=== PATIENT | female | born 1980 | race Caucasian/White ===

== ENCOUNTER 2016-05-20 20:13 | Emergency (ER) | payer OTHER, SELFPAY ==
[~2016-05-20] VITALS: Ht 162.6 cm; Wt 99.8 kg
[2016-05-21 00:28] VITALS: BP 128/70
--- NOTE | 2016-05-21 06:11 | REP ---
Clinical: Trauma. Technique: AP, lateral, bilateral oblique views of the right foot. Findings: No acute fracture or dislocation. Skeletal structures, joint spaces, and surrounding soft tissues appear relatively normal compared to 07/08/2005. No subcutaneous emphysema or radiodense foreign body. Lateral view demonstrates small calcaneal heal spur. Impression: No acute fracture or dislocation. Small calcaneal heal spur. Signed by David Santos MD 05/21/2016 06:03 A
== END 2016-05-21 00:29 | disposition home or self-care (01) ==
LOC: M ED 21:14
DX: S90.31XA Contusion of right foot, initial encounter (principal); W22.8XXA Striking against or struck by other objects, initial encounter; Y92.89 Other specified places as the place of occurrence of the external cause; Y93.89 Activity, other specified; Y99.0 Civilian activity done for income or pay; F17.210 Nicotine dependence, cigarettes, uncomplicated

== ENCOUNTER → 2020-02-29 | Outpatient (CLI) | payer OTHER | LOC: M LABSMTC 13:01 | PROVIDERS: ATTEND Pediatrics | DX: Z20.828 Contact with and (suspected) exposure to other viral communicable diseases (principal) ==

== ENCOUNTER 2020-03-22 10:00 | Inpatient (IN) | payer OTHER ==
[~2020-03-22] VITALS: Ht 165.1 cm; Wt 94.2 kg
[2020-03-22] MEDS ORDERED: NS 1,000 ML IV ONE (12:00)
[2020-03-22 12:48] VITALS: O2SAT 100
--- NOTE | 2020-03-22 12:50 | REP ---
INDICATION: Abdominal Pain COMPARISON: None. TECHNIQUE: PA and lateral. FINDINGS: The mediastinum and cardiac silhouette are normal. The lung wayne are clear and without acute consolidation, effusion, or pneumothorax. The skeletal structures are intact and normal. IMPRESSION: No acute cardiopulmonary process. <Electronically signed by David Santos > 03/22/20 [id number]
[2020-03-22 13:09] LABS: BASO # 0.1 10^3/uL (0.0-0.2); BASO % 0.3 % (0.0-1.0); EOS # 0.1 10^3/uL (0.0-0.5); EOS % 0.8 % (0.0-3.0); HEMATOCRIT 41.1 % (36.0-47.0); HEMOGLOBIN 13.6 g/dl (12.0-15.5); LYMPH # 2.3 10^3/uL (1.5-5.0); LYMPH % 15.9 % (24.0-44.0); MEAN CORPUSCULAR HEMOGLOBIN 29.6 pg (27.0-33.0); MEAN CORPUSCULAR HGB CONC 33.1 g/dl (32.0-36.5); MEAN CORPUSCULAR VOLUME 89.3 fl (80.0-96.0); MONO # 1.1 10^3/uL (0.0-0.8); MONO % 7.8 % (0.0-5.0); NEUTROPHILS # 10.7 10^3/uL (1.5-8.5); NEUTROPHILS % 74.3 % (36.0-66.0); PLATELET COUNT, AUTOMATED 155 10^3/uL (150-450); WHITE BLOOD COUNT 14.4 10^3/uL (4.0-10.0)
[2020-03-22 13:23] LABS: RSV AMPLIFICATION NEGATIVE (NEGATIVE)
[2020-03-22 13:26] LABS: INR 1.14; PROTHROMBIN TIME 14.9 SECONDS (12.5-14.3)
[2020-03-22 13:28] LABS: PARTIAL THROMBOPLASTIN TIME 25.7 SECONDS (24.2-38.5)
[2020-03-22 13:38] LABS: ERYTHROCYTE SEDIMENTATION RATE 43 mm/hr (0-20)
[2020-03-22 13:45] LABS: ALBUMIN 3.5 GM/DL (3.2-5.2); ALT/SGPT 72 U/L (12-78); BILIRUBIN,DIRECT 0.2 MG/DL (0.0-0.2); BILIRUBIN,TOTAL 0.6 MG/DL (0.2-1.0); BLOOD UREA NITROGEN 25 MG/DL (7-18); CALCIUM LEVEL 8.7 MG/DL (8.5-10.1); CARBON DIOXIDE LEVEL 21 MEQ/L (21-32); CHLORIDE LEVEL 103 MEQ/L (98-107); CK-MB VALUE MASS 1.2 NG/ML (<3.6); CPK CREATINE PHOSPHOKINASE 79 U/L (26-192); CREATININE FOR GFR 2.21 MG/DL (0.55-1.30); FREE T4 1.18 NG/DL (0.76-1.46); GLOMERULAR FILTRATION RATE 26.2 (>58); GLUCOSE, FASTING 346 MG/DL (70-100); LIPASE 79 U/L (73-393); MB/CK RELATIVE INDEX 1.52 (< OR =4); NT-PRO BNP 154 PG/ML (<125); POTASSIUM SERUM 3.8 MEQ/L (3.5-5.1); SODIUM LEVEL 134 MEQ/L (136-145); TOTAL PROTEIN 7.7 GM/DL (6.4-8.2); TROPONIN I < 0.02 NG/ML (< 0.10)
--- NOTE | 2020-03-22 14:34 | REP ---
INDICATION: b/l LE swelling COMPARISON: None. TECHNIQUE: Null scale and color Doppler evaluation bilateral lower extremities using linear high frequency transducer. FINDINGS: Ultrasound examination of the right and left lower extremity deep venous structures from the common femoral vein to the popliteal vein demonstrates slow flow, but normal compressibility and wave patterns in response to respiration and augmentation. There is no evidence for deep venous thrombosis. IMPRESSION: No evidence for deep venous thrombosis. <Electronically signed by David Santos > 03/22/20 [id number]
[2020-03-22 14:43] LABS: RHEUMATOID FACTOR QUANT < 10.0 IU/ML (<15.0)
[2020-03-22 15:11] LABS: D-DIMER QUANT > 4000 ng/ml (<500)
[2020-03-22] MEDS ORDERED: IBUP80TA PO (15:13)
[2020-03-22] MEDS ORDERED: CYCL-707 PO (15:13)
[2020-03-22] MEDS ORDERED: PT COMMENT (15:22)
[2020-03-22 16:07] LABS: HEMOGLOBIN A1c 9.8 %
[2020-03-22] MEDS ORDERED: GLUCAGON INJ 1MG VIAL SC PRN (16:15)
[2020-03-22] MEDS ORDERED: DEXTROSE 50% 50 ML SYRINGE IV PRN (16:15)
[2020-03-22] MEDS ORDERED: GLUCOSE 4GM CHEW TABLET PO PRN (16:15)
--- NOTE | 2020-03-22 16:17 | REP ---
INDICATION: lower back pain, bl LE edema. COMPARISON: 07/17/2007 TECHNIQUE: Axial noncontrast images of the lumbosacral spine from mid T12 through mid sacrum with coronal and sagittal reformations. This CT examination was performed using the following dose reduction techniques: Automated exposure control, adjustment of mA and/or kv according to the patient's size, and use of iterative reconstruction technique. FINDINGS: Alignment and lordosis maintained. Old fracture at L1 noted. There is no evidence for acute fracture/compression injury or subluxation. Early advanced focal degenerative change at L5-S1 similar to prior examination includes osteophytosis, endplate sclerosis, disc space narrowing and small posterior disc bulge. Small disc bulge at L4-5 is also suggested. The neural foramen appear patent and there is no evidence for in pinch mint to the exiting nerve roots. Spinal canal is patent. The paravertebral soft tissues are normal. IMPRESSION: 1. Old healed compression fracture at L1. 2. Early advanced relatively stable degenerative spondylosis at L5-S1. 3. No acute fracture/compression injury or subluxation. <Electronically signed by David Santos > 03/22/20 [id number]
--- NOTE | 2020-03-22 16:18 | HPEPDOC ---
General Date of Admission 03/22/20 Date of Service: Mar 22, 2020 Chief Complaint The patient is a 39-year-old female admitted with a reason for visit of Leg Swelling, Chest Pain. Source: Patient Exam Limitations: No limitations Timing/Duration: Day(s) Severity: Mild, Moderate History of Present Illness Patient is 39 years old female with past history of hypothyroidism, chronic back pain, goiter presented hospital with bilateral leg swelling. Patient stated that she went to urgent care 3 days ago because of exacerbation of chronic back pain, she received injection of Toradol and received ibuprofen. On the next day patient started feeling leg swelling bilaterally which progressively increased for past 2 days. In ER patient was found to have white blood count of 14.4, sedimentation rate of 43, creatinine 2.2, GFR 26, glucose level 346, d-dimer elevated to 4,000. Doppler ultrasound negative for DVT. Home Medications Scheduled PRN Cyclobenzaprine HCl (Cyclobenzaprine HCl) 10 Mg Tablet, 10 MG PO Q8H PRN for SPASMS, (Reported) Ibuprofen (Ibuprofen) 800 Mg Tablet, 800 MG PO Q8H PRN for PAIN, (Reported) Miscellaneous Medications [Pt Comment] , (Reported) pt states takes a norethindrone/ethinyl estradiol birthcontrol of indeterminate strength. Last taken on 03/21/20. Allergies Coded Allergies: sulfamethoxazole (Verified Allergy, Unknown, RASH, 03/22/20) Past Medical History Medical History goiter, Hypothyroidism Family History Mother had diabetes Social History * Smoker: current smoker Alcohol: Denies Drugs: denies A-FIB/CHADSVASC A-FIB History Current/History of A-Fib/PAF?: No Current PO Anticoag Therapy: No Review of Systems Constitutional: Denies: Chills, Fever Eyes: Denies: Pain ENT: Denies: Head Aches, Ear Pain Skin: Denies: Rash, Lesions Pulmonary: Denies: Dyspnea, Cough Cardiovascular: Reports: Edema; Denies: Chest Pain, Palpitations Gastrointestinal: Denies: Nausea, Vomiting Genitourinary: Denies: Dysuria Endocrine: Denies: Polydipsia, Polyphagia Musculoskeletal: Denies: Neck Pain Neurological: Denies: Weakness Psych: Reports: Mood Normal Physical Examination General Exam: Positive: Alert, Cooperative Eye Exam: Positive: PERRLA ENT Exam: Positive: Atraumatic Neck Exam: Positive: Supple; Negative: JVD Chest Exam: Positive: Clear to auscultation Heart Exam: Positive: Tachycardic Telemetry: Positive: Sinus Abdomen Exam: Positive: Normal bowel sounds Extremity Exam: Positive: Edema (bilaterally); Negative: Clubbing Skin Exam: Negative: Lesion Neuro Exam: Positive: Normal Gait, Strength at 5/5 X4 ext Psych Exam: Positive: Mental status NL Vital Signs Vital Signs Date Time Temp Pulse Resp B/P (MAP) Pulse Ox O2 Delivery O2 Flow Rate FiO2 03/22/20 13:45 98 100 Room Air 03/22/20 12:52 99.0 20 03/22/20 10:12 150/81 (104) Laboratory Data Labs 24H Laboratory Tests 2 03/22/20 11:58: Prothrombin Time 14.9H, Prothromb Time International Ratio 1.14, Activated Partial Thromboplast Time 25.7, D-Dimer, Quantitative > 4000H, Anion Gap 10, Glomerular Filtration Rate 26.2L, Calcium Level 8.7, Total Bilirubin 0.6, Direct Bilirubin 0.2, Aspartate Amino Transf (AST/SGOT) 13, Alanine Aminotransferase (ALT/SGPT) 72, Alkaline Phosphatase 106, Total Creatine Kinase 79, Creatine Kinase MB 1.2, Creatine Kinase MB Relative Index 1.52, Troponin I < 0.02, C- Reactive Protein, Quantitative 14.50H, QJ-Abp-L-Type Natriuretic Peptide 154H, Total Protein 7.7, Albumin 3.5, Albumin/Globulin Ratio 0.8L, Lipase 79, Thyroid Stimulating Hormone (TSH) 2.340, Free Thyroxine 1.18, Rheumatoid Factor < 10.0 03/22/20 12:02: Coronavirus (COVID-19)(PCR) NEGATIVE, Influenza Type A (RT-PCR) NEGATIVE, Influenza Type B (RT-PCR) NEGATIVE, Respiratory Syncytial Virus (PCR) NEGATIVE 03/22/20 12:11: Immature Granulocyte % (Auto) 0.9, Neutrophils (%) (Auto) 74.3H, Lymphocytes (%) (Auto) 15.9L, Monocytes (%) (Auto) 7.8H, Eosinophils (%) (Auto) 0.8, Basophils (%) (Auto) 0.3, Neutrophils # (Auto) 10.7H, Lymphocytes # (Auto) 2.3, Monocytes # (Auto) 1.1H, Eosinophils # (Auto) 0.1, Basophils # (Auto) 0.1, Nucleated Red Blood Cells % (auto) 0.0, Erythrocyte Sedimentation Rate 43H, Urine Color YELLOW, Urine Appearance CLOUDYH, Urine pH 5.0, Urine Specific [place] 1.030, Urine Protein 2+H, Urine Glucose (UA) 3+H, Urine Ketones NEGATIVE, Urine Blood NEGATIVE, Urine Nitrite NEGATIVE, Urine Bilirubin NEGATIVE, Urine Urobilinogen 0.2, Urine Leukocyte Esterase NEGATIVE, Urine WBC (Auto) 16H, Urine RBC (Auto) 2, Urine Hyaline Casts (Auto) 0, Urine Bacteria (Auto) 1+H, Urine Squamous Epithelial Cells 5, Urine Amorphous Sediment SMALLH, Urine Granular Casts (Auto) 8, Urine Mucus (Auto) SMALL, Urine Sperm (Auto) CBC/BMP Laboratory Tests 03/22/20 11:58 03/22/20 12:11 Microbiology Microbiology 03/22/20 Blood Culture, Received Pending 03/22/20 Urine Culture, Received Pending 03/22/20 Blood Culture, Received Pending Assessment/Plan Patient is 39 years old female with past history of hypothyroidism, chronic back pain, goiter presented hospital with bilateral leg swelling. Patient stated that she went to urgent care 3 days ago because of exacerbation of chronic back pain, she received injection of Toradol and received ibuprofen. On the next day patient started feeling leg swelling bilaterally which progressively increased for past 2 days. In ER patient was found to have white blood count of 14.4, sedimentation rate of 43, creatinine 2.2, GFR 26, glucose level 346, d-dimer elevated to 4,000. Doppler ultrasound negative for DVT. Problems (1) ASYA (acute kidney injury) Status: Acute Problem Text: Most likely intrinsic Secondary to NSAIDs and undiagnosed diabetes Appreciate/agree with production designer consult We'll check urine protein for 24 hours Autoimmune studies ordered (2) Elevated d-dimer Status: Acute Problem Text: Patient does not have any shortness of breath however she is tachycardic and d dimer elevated to 4,000 VQ scan not available I will start anticoagulation empirically (3) Lower extremity edema Status: Acute Problem Text: Echo ordered to rule out cardiac causes BNP within normal limit (4) Diabetes mellitus Status: Chronic Problem Text: Diabetes diet We'll check HbA1c Insulin sliding scale (5) Hypothyroidism Status: Chronic Problem Text: TSH and T4 with a normal limit Follow-up with sprayer leather in the outpatient settings Plan / VTE VTE Prophylaxis Ordered?: Yes WOLF JARQUIN DO Mar 22, 2020 16:18
--- NOTE | 2020-03-22 16:49 | REP ---
INDICATION: acute kidney failure COMPARISON: None TECHNIQUE: Real time brantley scale ultrasound examination using curved array transducer. FINDINGS: Kidneys are normal in contour, size, echogenicity, and reniform shape without hydronephrosis, nephrolithiasis, cystic or renal mass lesion. No perinephric fluid collection. Right kidney measures 13.5 x 6.5 x 5.3 cm. Left kidney measures 12.3 x 6.1 x 6.9 cm. Bladder is collapsed. IMPRESSION: 1. Normal renal ultrasound. No hydronephrosis. <Electronically signed by David Santos > 03/22/20 1072
[2020-03-22 17:47] LABS: COMPLEMENT C3 163 MG/DL (90-180); CPK CREATINE PHOSPHOKINASE 62 U/L (26-192)
--- NOTE | 2020-03-22 18:07 | ECGEPIP ---
[facility] - ED Test Date: 2020-03-22 Pat Name: AYDEN EVANS Department: Room: - Gender: Female Intake Coordinator: : 1980 Requested By: JUSTYN FRENCH PA-C. Order Number: [id number] Reading MD: Rocco King Measurements Intervals [place] Rate: 97 P: 39 SD: 141 QRS: -1 QRSD: 97 T: 7 QT: 340 QTc: 432 Interpretive Statements SINUS RHYTHM DELAYED R WAVE PROGRESSION NONSPECIFIC ST T WAVE CHANGES NO PRIOR ECG FOR COMPARISON Electronically Signed on 03-22-2020 18:07:14 EST by Rocco King
[2020-03-22] MEDS: HumaLOG INSULIN (NovoLOG) PER UNIT SC SCH ×2 (19:22→21:00)
[2020-03-22] MEDS: APIXABAN 5 MG TAB (ELIQUIS) PO SCH (21:00)
[2020-03-22] MEDS ORDERED: APIXABAN 5 MG TAB (ELIQUIS) PO SCH (21:00)
[2020-03-22] MEDS ORDERED: FUROSEMIDE 100MG/10ML VIAL (J1940) IV ONE (23:15)
--- NOTE | 2020-03-23 07:08 | CR ---
CONSULTATION DATE: 03/22/2020 REQUESTING PHYSICIAN: Dr. Aryan Simental CONSULTING PHYSICIAN: Dr. Mccarty REASON FOR CONSULTATION: Management of acute renal failure and lower extremity edema. CHIEF COMPLAINT: The patient presented to the hospital with progressive shortness of breath and lower extremity edema. HISTORY OF PRESENT ILLNESS: Demetrio Serrano is a 39-year-old female with past medical history of possible thyroid disorder. She does not follow up with any primary care at this time. She was trying to establish care for a long time. However, she was given very distant dates. She is not aware that she had developed diabetes. She was complaining of severe low back pain. She was recently seen in the urgent care unit where she was given ibuprofen 800 mg three times a day about three days ago when she was taking for her back pain. She is also taking oral contraceptive pills for the last one year almost. Apart from that, she denies taking any other medications. She was getting a severe lower extremity edema and swelling of the legs and her legs were so tired that she was unable to walk and she was getting short of breath as well so she presented to the emergency room today. When patient came to the emergency room, she was found to have acute renal failure with a creatinine of 2.2. She also had proteinuria on the labs done in the emergency room. Nephrology service was called for help in the management of this patient with acute renal failure. No baseline renal function known. She was also found to have a glucose level of 346, newly diagnosed diabetes with an A1c of 9.8. Nephrology service help was sought for further management of this patient's edema and management of acute renal failure and for the proteinuria workup. The patient needed my immediate attention. I saw her in the emergency room tonight. She was afebrile, hemodynamically stable. She was actually hypertensive. She denies any fevers or chills at this time. PAST MEDICAL HISTORY: No known past medical history. She reports history of some thyroid issues in the past. PAST SURGICAL HISTORY: No known past surgical history. ALLERGIES: SHE IS ALLERGIC TO SULFA DRUGS. FAMILY HISTORY: No significant family history of any end-stage renal disease requiring hemodialysis. SOCIAL HISTORY: She denies any smoking, illicit drug abuse or alcohol abuse. REVIEW OF SYSTEMS: Constitutional: She denies any fevers or chills. Eyes: She denies any blurry vision, double vision. Cardiovascular: She denies any chest pain, palpitation. Respiratory: She reports moderate shortness of breath on exertion. GI: She denies any nausea or vomiting. Genitourinary: She denies any dysuria, hematuria or foaming of the urine. Musculoskeletal: She reports tightness of the legs and lower extremities. Skin: She denies any rashes or ulcers. Hematological/Oncological: She denies any easy bleeding or bruising. Endocrine: She denies any polyphagia, polyuria. She does report some thyroid abnormalities. Psych: She denies any depression or anxiety. WAREHOUSE DELIVERY MANAGER: He denies any strokes, weakness or seizures.. All other review of systems is negative. PHYSICAL EXAMINATION: GENERAL: The patient is awake, alert, oriented x3, lying in bed. VITAL SIGNS: Temperature is 99.3 degrees Fahrenheit, blood pressure 178/90, pulse is 112, respiratory rate of 16, saturating 99% on room air. INTAKE AND OUTPUT: Urine output is not recorded. HEAD AND NECK: Extraocular muscles are intact. Pupils are equally round and reactive to light. Mucous membranes are moist. Neck is supple. There is no JVD. CARDIOVASCULAR: S1, S2, regular rate, 2+ edema of the bilateral lower extremities all the way up to thighs. RESPIRATORY: Chest is clear to auscultation bilaterally, no active rales or rhonchi. ABDOMEN: Soft, positive bowel sounds, nontender, no organomegaly. MUSCULOSKELETAL: No clubbing or cyanosis. EXTREMITIES: Pulses are 2+ in the bilateral lower extremities and she does have edema of the bilateral lower extremities all the way up to the thighs. WAREHOUSE DELIVERY MANAGER: No focal deficits. 5/5 strength in all extremities. LABORATORY DATA: CBC showed a WBC of 14.4, hemoglobin 13.6, platelets of 155. INR is 1.1. D-dimer was more than 4000. Urine showed it was cloudy with 2+ protein, 3+ glucose, 16 WBCs, 1+ bacteria. BMP showed sodium 134, potassium 3.8, chloride 103, bicarb 21, BUN 25, creatinine 2.2. Glucose 346. A1c was 9.8, calcium 8.7, total bilirubin 0.6, AST 13, ALT 72. Alk phos is 106. C-reactive protein is 14.5. Albumin is 3.5, lipase 79. TSH is 2.3, Free T4 is 1.1. Immunology: Rheumatoid factor is less than 10. MARVIN, ANCA is pending. Complement 3 is 163. COVID-19 is negative. Hep B, hep C, hep A is negative. Microbiology: Urine and blood cultures are pending. IMAGING: Ultrasound was done today which showed normal renal ultrasound. No hydronephrosis was noted. CT of lumbar spine was done which showed an old healed compression fracture of L1. Relatively stable degenerative spondylosis at L5-S1. CURRENT INPATIENT MEDICATIONS: 1. The patient was given normal saline bolus when she arrived. 2. She has been started on Eliquis 5 mg p.o. twice a day. I have increased the dose to 10 mg p.o. twice a day. 3. I have given her a dose of Lasix 60 mg IV x1 dose. 4. She has been started on insulin Lispro sliding scale. ASSESSMENT: 39-year-old female with new onset diabetes, acute renal failure with proteinuria and lower extremity edema. PLAN: 1. Acute renal failure. Most likely the patient has baseline diabetic nephropathy and she was taking ibuprofen 800 mg three times a day for the last three days. Most likely it is NSAID-induced. I am hopeful that her renal function should start improving over the next 24 to 48 hours. She does not need IV fluids at this time. Her blood pressures are actually high. No need of IV fluid hydration overnight. Since she was already given bolus, I am going to give her a small dose of Lasix. 2. Lower extremity edema. The patient has signs of fluid overload at this time. I am not sure whether lower extremity edema is associated with her proteinuria or worsening renal function or any other etiology. At this point, I am going to give her a dose of Lasix 60 mg IV tonight and further diuretic regimen will be changed tomorrow morning. Proteinuria workup is as mentioned below. Doppler done in the emergency room is negative for DVT. 3. Elevated D-dimer and shortness of breath. The patient is not a candidate for CT with IV contrast because of acute renal failure. Doppler is negative. V/Q scan is not available over the weekend. She has been empirically started on Eliquis 10 mg p.o. twice a day. 4. Proteinuria. Most likely it is baseline diabetic nephropathy. She was taking high dose of NSAIDs as well. I have ordered 24 hour urine protein and creatinine and spot protein and creatinine as well. Primary team has already sent MARVIN and ANCA. I have ordered [id number]-[id number] DNA antibodies and anti-GBM antibody as well. She is not a candidate for SAMIRA or ARB at this time because of acute renal failure. 5. Newly diagnosed diabetes. The patient has been started on insulin sliding scale. She will be started on insulin Levemir tomorrow morning. She has been started on consistent carbohydrate diet. Thank you for involving me in the care of this patient. I shall be happy to follow the patient along with you tomorrow morning.
[2020-03-23 07:30] LABS: ALBUMIN 3.1 GM/DL (3.2-5.2); CALCIUM LEVEL 8.8 MG/DL (8.5-10.1); CREATININE FOR GFR 2.05 MG/DL (0.55-1.30); GLOMERULAR FILTRATION RATE 28.6 (>58); PHOSPHORUS LEVEL 3.3 MG/DL (2.5-4.9); POTASSIUM SERUM 3.8 MEQ/L (3.5-5.1)
[2020-03-23] MEDS: HumaLOG INSULIN (NovoLOG) PER UNIT SC SCH ×4 (08:08→21:36)
[2020-03-23] MEDS ORDERED: ONDANSETRON 4MG/2ML VIAL IV PRN (08:15)
[2020-03-23] MEDS ORDERED: LEVEMIR (INSULIN DETEMIR) 1 UNITS/0.01ML SC SCH (09:00)
[2020-03-23] MEDS: APIXABAN 5 MG TAB (ELIQUIS) PO SCH ×2 (09:51→21:15)
[2020-03-23 10:45] VITALS: BP 162/98
[2020-03-23 11:26] LABS: OSMOLALITY URINE 740 MOSM/KG (500-800)
[2020-03-23 11:53] LABS: POTASSIUM RANDOM URINE 32.8 MEQ/L; SODIUM,RANDOM URINE < 10 MEQ/L; TOTAL PROTEIN,RANDOM URINE 132.7 MG/DL (0.0-12.0)
[2020-03-23] MEDS: FUROSEMIDE 40MG/4ML VIAL (J1940) IV SCH ×2 (12:41→21:15)
[2020-03-23] MEDS ORDERED: POTASSIUM CHLORIDE 10 MEQ SR TABLET PO ONE (13:00)
[2020-03-23 14:00] VITALS: BP 159/82
--- NOTE | 2020-03-23 17:40 | IPNPDOC ---
Text Note Date of Service The patient was seen on 03/23/20. NOTE Subjective: Patient continues to complain of the leg swelling. No any acute e vents overnight Objective: GENERAL APPEARANCE: NAD HEENT: no scleral icterus, no JVD, EOMI CARDIOVASCULAR: S1S2 LUNGS: CTA ABDOMEN: soft & not tender w palpitation MUSCULOSKELETAL: +3 nonpitting edema from the ankle to the middle of her hip INTEGUMENT: no generalized pallor NEUROLOGICAL: cranial nerve function from 2-12 intact intact, follows commands, speech not dysarthric Assessment/Plan Patient is 39 years old female with past history of hypothyroidism, chronic back pain, goiter presented hospital with bilateral leg swelling. Patient stated that she went to urgent care 3 days ago because of exacerbation of chronic back pain, she received injection of Toradol and received ibuprofen. On the next day patient started feeling leg swelling bilaterally which progressively increased for past 2 days. In ER patient was found to have white blood count of 14.4, sedimentation rate of 43, creatinine 2.2, GFR 26, glucose level 346, d-dimer elevated to 4,000. Doppler ultrasound negative for DVT. Problems (1) ASYA (acute kidney injury) Most likely intrinsic Secondary to NSAIDs and undiagnosed diabetes We'll check urine protein for 24 hours Urine protein/creatinine ratio 0.8 Autoimmune studies pending (2) Elevated d-dimer Patient does not have any shortness of breath however she is tachycardic and d dimer elevated to 4,000 VQ scan not available Continue anticoagulation empirically (3) Lower extremity edema Echo ordered to rule out cardiac causes BNP within normal limit Lasix IV (4) Diabetes mellitus Diabetes diet HbA1c 10. Patient will need insulin in the outpatient settings Insulin sliding scale Detemir twice a day (5) Hypothyroidism TSH and T4 with a normal limit Follow-up with equipment operator wage hand in the outpatient settings Proteinuria Mostly secondary to diabetic nephropathy superimposed with NSAIDS Await 24 hours urine protein Await autoimmune study VS,Fishbone, I+O VS, Fishbone, I+O Laboratory Tests 03/23/20 06:46 Vital Signs Date Time Temp Pulse Resp B/P (MAP) Pulse Ox O2 Delivery O2 Flow Rate FiO2 03/23/20 14:00 98.4 109 18 159/82 (107) 99 Room Air WOLF JARQUIN DO Mar 23, 2020 17:40
[2020-03-23 20:00] VITALS: BP 150/88
[2020-03-23] MEDS: LEVEMIR (INSULIN DETEMIR) 1 UNITS/0.01ML SC SCH (21:36)
--- NOTE | 2020-03-23 23:06 | IPN ---
NEPHROLOGY PROGRESS NOTE DATE: 03/23/2020 SUBJECTIVE: Patient was seen and examined at the bedside today morning. She was just transferred from the Emergency Room to the medical floor. She reports persistent lower extremity edema and she told me that shortness of breath is slightly better today as compared with yesterday. She was given a dose of I.V. Lasix last night. She does report making more urine with that, but it has not been recorded because she was in the Emergency Room. Her renal function is slightly better today as compared with yesterday. Blood pressure was elevated in the morning. She denies any history of hypertension in the past. OBJECTIVE: VITAL SIGNS: Temperature 97.8 degrees Fahrenheit, blood pressure 162/98, pulse 104, respiratory rate 16, saturating 99% on room air. INTAKE AND OUTPUT: Urine output recorded as 800 mL so far. Weight in the bed scale is 92.7 kg. PHYSICAL EXAMINATION: GENERAL: Patient is awake, alert and oriented x3, lying in bed, in no apparent distress. HEAD/NECK: Extraocular movements intact. Pupils equally round and reactive to light. Mucous membranes are moist. Neck is supple. There is no significant JVD. CARDIOVASCULAR: S1, S2, regular rate. EXTREMITIES: 2+ edema of the bilateral lower extremities. RESPIRATORY: Mildly decreased breath sounds at the bases, otherwise no active rales or rhonchi. ABDOMEN: Soft, positive bowel sounds, nontender. No organomegaly. MUSCULOSKELETAL: 2+ edema of the bilateral lower extremities all the way up to her thighs. MONORAIL CAR OPERATOR: No focal deficits. Power is 5/5 in all extremities. LABORATORY REVIEW: CBC is from yesterday. BMP done today morning showed sodium 133, potassium 3.8, chloride 105, bicarb 20, BUN 24, creatinine 2; it was 2.2 yesterday. Glucose level 323. Calcium 8.8, phosphorus 3.3, albumin 3.1. Spot urine protein 132 and creatinine 137, which translates into less than 1 gram of proteinuria. Random sodium was less than 10. Immunology so far has showed a normal C3 level and serology showed negative influenza and RSV. Hepatitis B and C serologies pending. COVID-19 is negative. MICROBIOLOGY: Blood cultures and urine cultures are negative so far. CURRENT INPATIENT MEDICATIONS: Patient's medications were all reviewed by myself. She was given a dose of Lasix 60 mg I.V. last night. I have started her on Lasix 40 mg I.V. every 8 hours. She was also given a dose of potassium chloride 40 mEq times one dose. She has been started on insulin Levemir 7 units subcutaneously twice a day. ASSESSMENT AND PLAN: 1. Acute renal failure: Most likely patient has baseline diabetic nephropathy and now she took higher doses of NSAIDs at home for the last 3-4 days. Patient's renal function is slowly improving. Proteinuria workup has already been ordered. Autoimmune serologies pending. 2. Lower extremity edema: Patient has fluid overload. Not sure whether it is related to renal failure or her proteinuria, however, patient does need diuretics at this time. As mentioned above, she has been started on Lasix 40 mg I.V. every 8 hours. A dose of potassium was also given. 3. Elevated D-Dimers and shortness of breath: Patient is empirically on Eliquis. Doppler of the lower extremity is negative for DVT. CT with angio is not possible because of acute renal failure. VQ scan is not available over the weekend. 4. Proteinuria: Spot urine protein and creatinine ratio shows less than 1 gram of protein. She is not a candidate for SAMIRA and ARB at this time because of acute renal failure. Autoimmune serology is pending. 24-hour urine results are pending. 5. Newly diagnosed diabetes: Patient is on insulin sliding scale and Levemir. Not a candidate for Metformin at this time because of elevated creatinine.
[2020-03-24 04:14] VITALS: BP 146/101
[2020-03-24] MEDS: FUROSEMIDE 40MG/4ML VIAL (J1940) IV SCH ×3 (04:14→21:56)
[2020-03-24] MEDS ORDERED: MORPHINE 2 MG/ML 1ML VIAL (J2270) IV ONE (04:30)
[2020-03-24 06:27] LABS: BASO % 0.3 % (0.0-1.0); EOS # 0.1 10^3/uL (0.0-0.5); EOS % 0.8 % (0.0-3.0); HEMOGLOBIN 12.9 g/dl (12.0-15.5); LYMPH # 2.7 10^3/uL (1.5-5.0); LYMPH % 19.5 % (24.0-44.0); MEAN CORPUSCULAR HEMOGLOBIN 29.3 pg (27.0-33.0); MEAN CORPUSCULAR HGB CONC 33.1 g/dl (32.0-36.5); MEAN CORPUSCULAR VOLUME 88.6 fl (80.0-96.0); MONO # 1.5 10^3/uL (0.0-0.8); MONO % 10.6 % (0.0-5.0); NEUTROPHILS # 9.3 10^3/uL (1.5-8.5); NEUTROPHILS % 67.9 % (36.0-66.0); PLATELET COUNT, AUTOMATED 170 10^3/uL (150-450); WHITE BLOOD COUNT 13.7 10^3/uL (4.0-10.0)
[2020-03-24 06:52] LABS: ALBUMIN 2.9 GM/DL (3.2-5.2); BILIRUBIN,TOTAL 0.7 MG/DL (0.2-1.0); CALCIUM LEVEL 8.8 MG/DL (8.5-10.1); CREATININE FOR GFR 2.28 MG/DL (0.55-1.30); GLOMERULAR FILTRATION RATE 25.3 (>58); MAGNESIUM LEVEL 2.3 MG/DL (1.8-2.4); POTASSIUM SERUM 4.2 MEQ/L (3.5-5.1); TOTAL PROTEIN 7.1 GM/DL (6.4-8.2)
--- NOTE | 2020-03-24 08:22 | ECHO ---
DATE OF PROCEDURE: 03/23/2020 Age: 39 Gender: Female Height: 65 inches Weight: 205 pounds Body surface area: 2.0 m2 PATIENT LOCATION: Inpatient currently in holding in the emergency room. REFERRING PHYSICIAN: Aryan Simental DO. INDICATION: Pedal edema. MEASUREMENTS: 2D Measurements: RV 2.4 cm LV 4.2 cm Septum 0.9 cm Posterior wall 0.9 cm Aortic Root 2.9 cm LA 3.5 cm LVEF 75% Doppler Measurements: AV 1.3 m/s LVOT 1.1 m/s MV-E 61, A 88, E/A ratio 0.7 E prime medial 7.6, A prime medial 12, E prime lateral 12.5 PV 1.0 m/s Pulmonary artery acceleration time 129 msec PASP 24 mmHg IVC 1.8 cm COMMENTS: Sinus tachycardia without intraventricular conduction disturbance. Technically challenging study in light of the patients body habitus, but some diagnostically useful information was still obtained. Normal left ventricular size, wall thickness, and hyperkinetic wall motion. Normal left atrial size and Doppler assessment of mean left atrial pressure. Normal right heart chamber sizes and motion and estimated pulmonary arterial pressure. Normal IVC size and collapse against an elevated central venous pressure. Normal aortic dimensions. Normal appearing aortic valve and function. Normal appearing mitral valve with adequate excursion and no posterior systolic buckling. Trace insufficiency. Right heart structures were somewhat challenging to visualize. We could not detect any significant tricuspid insufficiency. We could not visualize any intracardiac mass or pericardial effusion. MTDD
[2020-03-24] MEDS ORDERED: INFLUENZA QUADRIVALENT PF VACCINE 0.5ML SYRINGE IM SCH (09:00)
[2020-03-24] MEDS: HumaLOG INSULIN (NovoLOG) PER UNIT SC SCH ×4 (09:01→21:00)
[2020-03-24] MEDS: LEVEMIR (INSULIN DETEMIR) 1 UNITS/0.01ML SC SCH ×2 (09:01→21:57)
[2020-03-24] MEDS: APIXABAN 5 MG TAB (ELIQUIS) PO SCH (09:01)
--- NOTE | 2020-03-24 09:55 | REP ---
INDICATION: Needs to be done before 11 a.m. for Nuclear [facility] COMPARISON: 03/22/2020 TECHNIQUE: PA and lateral. FINDINGS: The mediastinum and cardiac silhouette are normal. The lung wayne are clear and without acute consolidation, effusion, or pneumothorax. The skeletal structures are intact and normal. IMPRESSION: No acute cardiopulmonary process. <Electronically signed by David Santos > 03/24/20 0947
--- NOTE | 2020-03-24 12:02 | REP ---
INDICATION: CP, elevated dimer, pleuritic CP, elevated creatinine. COMPARISON: Chest radiograph 03/24/2020. TECHNIQUE/RADIOTRACER AND DOSE: Following the intravenous administration of 5.3 mCi technetium 99 M tagged MAA, anion lesion of 1.0 mCi technetium 99 M DTPA aerosol, multiple images of the lung wayne are obtained in various projections. FINDINGS: There is relatively homogeneous perfusion of both lungs. There is a small matching ventilation and perfusion defect in the lingula. No areas of acute mismatch is seen. IMPRESSION: Low probability of pulmonary embolism. <Electronically signed by Hunter Null > 03/24/20 1151
[2020-03-24 13:11] LABS: CREATININE 24 HOUR, URINE 1425.6 MG/24HR (600-1800); CREATININE, URINE 64.8 MG/DL; TOTAL PROTEIN 24 HOUR URINE 1146.2 MG/24HR (50-150); URINE TOTAL PROTEIN 52.1 MG/DL (0-12)
[2020-03-24 14:00] VITALS: BP 144/88
[2020-03-24 15:12] LABS: HEPATITIS B CORE ANTIBODY IGM NEGATIVE (NEGATIVE); HEPATITIS B SURFACE ANTIBODY NEGATIVE (POSITIVE); HEPATITIS B SURFACE ANTIGEN NEGATIVE (NEGATIVE); HEPATITIS C VIRUS ABY INDEX < 0.0 INDEX (<0.8)
--- NOTE | 2020-03-24 18:39 | IPNPDOC ---
Text Note Date of Service The patient was seen on 03/24/20. NOTE Subjective: No any acute events overnight Objective: GENERAL APPEARANCE: NAD HEENT: no scleral icterus, no JVD, EOMI CARDIOVASCULAR: S1S2 LUNGS: CTA ABDOMEN: soft & not tender w palpitation MUSCULOSKELETAL: +3 nonpitting edema from the ankle to the middle of her hip INTEGUMENT: no generalized pallor NEUROLOGICAL: cranial nerve function from 2-12 intact intact, follows commands, speech not dysarthric Assessment/Plan Patient is 39 years old female with past history of hypothyroidism, chronic back pain, goiter presented hospital with bilateral leg swelling. Patient stated that she went to urgent care 3 days ago because of exacerbation of chronic back pain, she received injection of Toradol and received ibuprofen. On the next day patient started feeling leg swelling bilaterally which progressively increased for past 2 days. In ER patient was found to have white blood count of 14.4, sedimentation rate of 43, creatinine 2.2, GFR 26, glucose level 346, d-dimer elevated to 4,000. Doppler ultrasound negative for DVT. Problems (1) ASYA (acute kidney injury) Most likely intrinsic Secondary to NSAIDs and undiagnosed diabetes Await urine protein for 24 hours Urine protein/creatinine ratio 0.8 Autoimmune studies pending (2) Elevated d-dimer VQ scan showed low probability of PE DC oral anticoagulation (3) Lower extremity edema Echo showed Normal left ventricular size, wall thickness, and hyperkinetic wall motion. Normal left atrial size and Doppler assessment of mean left atrial pressure. Normal right heart chamber sizes and motion and estimated pulmonary arterial pressure. Normal IVC size and collapse against an elevated central venous pressure. BNP within normal limit Nephrology team started Lasix IV (4) Diabetes mellitus Diabetes diet HbA1c 10. Patient will need insulin in the outpatient settings Insulin sliding scale Detemir twice a day, glucose level not optimally controlled. I increased detemir twice a day to 16 units (5) Hypothyroidism TSH and T4 with a normal limit Follow-up with hydroelectric systems technician in the outpatient settings Proteinuria Mostly secondary to diabetic nephropathy superimposed with NSAIDS Await 24 hours urine protein Await autoimmune study VS,Fishbone, I+O VS, Fishbone, I+O Laboratory Tests 03/24/20 05:32 Vital Signs Date Time Temp Pulse Resp B/P (MAP) Pulse Ox O2 Delivery O2 Flow Rate FiO2 03/24/20 06:00 97.9 104 18 98 03/24/20 04:14 146/101 (116) 03/23/20 20:00 Room Air I&O- Last 24 Hours up to 6 AM 03/24/20 06:00 Intake Total 1815 ml Output Total 1950 ml Balance -135 ml WOLF JARQUIN DO Mar 24, 2020 18:38
--- NOTE | 2020-03-24 21:38 | IPN ---
NEPHROLOGY PROGRESS NOTE DATE: 03/24/2020 SUBJECTIVE: Patient was seen and examined at the bedside today morning. She had just come back after getting her VQ scan done. When I saw her, she was started on I.V. diuretics yesterday. She reports that urine output is improving, however, she still reports persistent lower extremity edema. Renal function is slightly worse today as compared with yesterday with a bump in creatinine from 2 to 2.2 today. She denies any other active complaints at this time. OBJECTIVE: VITAL SIGNS: Temperature 98.3 degrees Fahrenheit, blood pressure 144/88, pulse 107, respiratory rate 22, saturating 97% on room air. INTAKE AND OUTPUT: Urine output recorded as 1.9 liter yesterday and 925 mL so far today since overnight. Weight in the bed scale is 96 kg. PHYSICAL EXAMINATION: GENERAL: Patient is awake, alert and oriented x3, lying in bed, in no apparent distress. HEAD/NECK: Extraocular muscles intact. Pupils equally round and reactive to light. Mucous membranes are moist. Neck is supple. There is no JVD. CARDIOVASCULAR: S1, S2, regular rate. 2+ edema of the bilateral lower extremities all the way up to the thighs. RESPIRATORY: Chest is clear to auscultation bilaterally. Bilateral equal air entry. No rales or rhonchi. ABDOMEN: Soft, positive bowel sounds, nontender. No organomegaly. MUSCULOSKELETAL: Edema of the lower extremities as mentioned above, otherwise no clubbing or cyanosis. SILVER STEWARD: No focal deficits. Power is 5/5 in all extremities. LABORATORY REVIEW: CBC showed WBC 13.7, hemoglobin 12.9, platelets 170,000. A 24-hour urine protein is 1.1 gram, volume 2.2 liters. BMP showed sodium 132, potassium 4.2, chloride 103, bicarb 22, BUN 28, creatinine 2.2; it was 2.05 yesterday. Calcium 8.8, albumin 2.9. MICROBIOLOGY: Blood cultures and urine cultures are negative so far. IMAGING STUDIES: A VQ scan of the lung was done today morning, which showed a low probability of PE. Chest x-ray was done today, which showed no cardiopulmonary process. Echocardiogram done on 03/22/2020 showed LV ejection fraction of 75%, normal right heart chambers and motion, normal IVC size and collapse against an elevated central venous pressure. There was no tricuspid insufficiency or pericardial effusion. CURRENT INPATIENT MEDICATIONS: Patient's medications were all reviewed by myself. Her Eliquis has been stopped now. She continues to be on Lasix 40 mg I.V. every 8 hours. Insulin Levemir dose has been increased to 16 units subcutaneously twice a day. She is also on insulin sliding scale. ASSESSMENT AND PLAN: 1. Acute renal failure: Unknown etiology at this time. She has subnephrotic range proteinuria. She was using high dose of NSAIDs at home. Continue to monitor. If there is no improvement in her renal function, she might need to get a renal biopsy done. 2. Lower extremity edema: Patient continues to be on Lasix. Continue current dose of the diuretics at this time. 3. Elevated D-Dimers: Dopplers and VQ scan has been negative. Eliquis has been stopped. 4. Proteinuria: A 24-hour urine protein is 1.1 gram. Autoimmune serologies are pending. I would have a low threshold to do a biopsy in this patient because she is young and presented with acute renal failure with unknown etiology. 5. Newly diagnosed diabetes: Patient is currently on Levemir Insulin sliding scale. No SAMIRA or ARB at this time because of acute renal failure.
[2020-03-24 22:00] VITALS: BP 148/94
[2020-03-25] VITALS (8 sets, daily range): BP systolic 121–160; BP diastolic 89–105
[2020-03-25] MEDS: FUROSEMIDE 40MG/4ML VIAL (J1940) IV SCH ×3 (04:11→20:18)
[2020-03-25 06:20] LABS: BASO % 0.3 % (0.0-1.0); EOS # 0.1 10^3/uL (0.0-0.5); EOS % 1.1 % (0.0-3.0); HEMATOCRIT 38.4 % (36.0-47.0); HEMOGLOBIN 12.8 g/dl (12.0-15.5); LYMPH # 2.2 10^3/uL (1.5-5.0); LYMPH % 16.7 % (24.0-44.0); MEAN CORPUSCULAR HEMOGLOBIN 29.4 pg (27.0-33.0); MEAN CORPUSCULAR HGB CONC 33.3 g/dl (32.0-36.5); MEAN CORPUSCULAR VOLUME 88.1 fl (80.0-96.0); MONO # 1.4 10^3/uL (0.0-0.8); MONO % 10.4 % (0.0-5.0); NEUTROPHILS # 9.2 10^3/uL (1.5-8.5); NEUTROPHILS % 70.4 % (36.0-66.0); PLATELET COUNT, AUTOMATED 161 10^3/uL (150-450); RED BLOOD COUNT 4.36 10^6/uL (4.00-5.40)
[2020-03-25 06:54] LABS: CREATININE FOR GFR 2.08 MG/DL (0.55-1.30); GLOMERULAR FILTRATION RATE 28.1 (>58); POTASSIUM SERUM 3.6 MEQ/L (3.5-5.1)
[2020-03-25 06:55] LABS: ALBUMIN 2.8 GM/DL (3.2-5.2); BILIRUBIN,TOTAL 0.6 MG/DL (0.2-1.0); CALCIUM LEVEL 8.7 MG/DL (8.5-10.1); MAGNESIUM LEVEL 2.1 MG/DL (1.8-2.4)
[2020-03-25] MEDS: HumaLOG INSULIN (NovoLOG) PER UNIT SC SCH ×4 (08:02→19:54)
[2020-03-25] MEDS: LEVEMIR (INSULIN DETEMIR) 1 UNITS/0.01ML SC SCH ×2 (08:03→20:19)
[2020-03-25] MEDS ORDERED: METOPROLOL TART 25 MG TABLET PO SCH (11:00)
[2020-03-25 11:20] LABS: INR 1.3; PROTHROMBIN TIME 16.5 SECONDS (12.5-14.3)
[2020-03-25 11:22] LABS: D-DIMER QUANT 3020.62 ng/ml (<500)
[2020-03-25 11:33] LABS: CHOLESTEROL LEVEL 170 MG/DL (<200); CK-MB VALUE MASS < 1.0 NG/ML (<3.6); CPK CREATINE PHOSPHOKINASE 35 U/L (26-192); HDL CHOLESTEROL 50 MG/DL (>40); LDL CHOLESTEROL 68 MG/DL (<100); MB/CK RELATIVE INDEX 2.86 (< OR =4); NON-HDL-C 120 MG/DL; TRIGLYCERIDES LEVEL 261 MG/DL (<150); TROPONIN I < 0.02 NG/ML (< 0.10)
[2020-03-25] MEDS: LORazepam 0.5 MG TAB PO PRN (13:02)
[2020-03-25 14:10] LABS: ANTINUCLEAR ANTIBODIES DIRECT Negative (Negative)
[2020-03-25] MEDS ORDERED: METOPROLOL TART 50 MG TAB PO ONE (16:30)
--- NOTE | 2020-03-25 17:18 | IPNPDOC ---
Text Note Date of Service The patient was seen on 03/25/20. NOTE Subjective: Patient stated that she is more anxious today. She concerns about kidney biopsy and aspirate of dialysis. Patient also complained of back pain Objective: GENERAL APPEARANCE: NAD HEENT: no scleral icterus, no JVD, EOMI CARDIOVASCULAR: S1S2 LUNGS: CTA ABDOMEN: soft & not tender w palpitation MUSCULOSKELETAL: +3 nonpitting edema from the ankle to the middle of her hip INTEGUMENT: no generalized pallor Back: Tender to palpation over L2-L4 NEUROLOGICAL: cranial nerve function from 2-12 intact intact, follows commands, speech not dysarthric Assessment/Plan Patient is 39 years old female with past history of hypothyroidism, chronic back pain, goiter presented hospital with bilateral leg swelling. Patient stated that she went to urgent care 3 days ago because of exacerbation of chronic back pain, she received injection of Toradol and received ibuprofen. On the next day patient started feeling leg swelling bilaterally which progressively increased for past 2 days. In ER patient was found to have white blood count of 14.4, sedimentation rate of 43, creatinine 2.2, GFR 26, glucose level 346, d-dimer elevated to 4,000. Doppler ultrasound negative for DVT. Problems ASYA (acute kidney injury) Most likely intrinsic Secondary to NSAIDs and undiagnosed diabetes Autoimmune studies pending Will proceed with renal biopsy tomorrow Elevated d-dimer VQ scan showed low probability of PE DC oral anticoagulation Lower extremity edema Echo showed Normal left ventricular size, wall thickness, and hyperkinetic wall motion. Normal left atrial size and Doppler assessment of mean left atrial pressure. Normal right heart chamber sizes and motion and estimated pulmonary arterial pressure. Normal IVC size and collapse against an elevated central venous pressure. BNP within normal limit Nephrology team started Lasix IV Diabetes mellitus Diabetes diet HbA1c 10. Patient will need insulin in the outpatient settings Insulin sliding scale Detemir twice a day, glucose level not optimally controlled. I increased detemir twice a day to 20 units Hypothyroidism TSH and T4 with a normal limit Follow-up with export sales assistant in the outpatient settings Proteinuria Mostly secondary to diabetic nephropathy superimposed with NSAIDS 24 hours urine protein 1146 mg Sinus tachycardia EKG showed sinus tach Most likely secondary to severe anxiety Lorazepam when necessary Metoprolol 50 mg twice a day Back pain Patient has slight leukocytosis with back pain and increased sedimentation rate to 63 There is possibility of discitis Will proceed with MRI VS,Jad, I+O VS, Fishbone, I+O Laboratory Tests 03/25/20 06:09 Vital Signs Date Time Temp Pulse Resp B/P (MAP) Pulse Ox O2 Delivery O2 Flow Rate FiO2 03/25/20 17:09 107 151/92 03/25/20 14:00 97.1 16 100 Room Air I&O- Last 24 Hours up to 6 AM 03/25/20 06:00 Intake Total 2460 ml Output Total 2625 ml Balance -165 ml WOLF JARQUIN DO Mar 25, 2020 17:18
[2020-03-25] MEDS ORDERED: POTASSIUM CHLORIDE 10 MEQ SR TABLET PO ONE (17:30)
--- NOTE | 2020-03-25 19:40 | ECGEPIP ---
[facility] Test Date: 2020-03-25 Pat Name: AYDEN EVANS Department: Room: [place] [address] Gender: Female [employer] Lug[employer] Molder: HERNANDO : 1980 Requested By: Dell Hendrix Order Number: [id number] Reading MD: Eric Driscoll Measurements Intervals [place] Rate: 118 P: 54 SC: 112 QRS: 12 QRSD: 90 T: 20 QT: 307 QTc: 430 Interpretive Statements SINUS TACHYCARDIA WITH SHORT SC INTERVAL ABNORMAL RHYTHM ECG SIMILAR TO 03/22/20 Electronically Signed on 03-25-2020 19:41:03 EST by Eric Driscoll
[2020-03-25] MEDS: METOPROLOL TART 50 MG TAB PO SCH (20:18)
[2020-03-25] MEDS ORDERED: VANCOMYCIN HCL 1,000 MG, VIAL MATE ADAPTER 1 EACH in D5W 250 ML IV ONE (21:00)
--- NOTE | 2020-03-25 21:15 | IPN ---
NEPROLOGY PROGRESS NOTE DATE: 03/25/2020 SUBJECTIVE: The patient was seen and examined at the bedside today morning. She had just come back from the restroom, and the patient was very tachycardic when I saw her. Her pulse rate was 130's to 140's but was very regular. She reported mild shortness of breath. She still reports persistent lower extremity edema and despite being on high dose of Lasix, there is no significant improvement in the renal function. Creatinine has been fluctuating around 2. Glucose levels are better controlled now. OBJECTIVE: VITAL SIGNS: Temperature is 97.1 degrees Fahrenheit, blood pressure 149/91, pulse is 130, respiratory rate of 16, saturating 100% on room air. INTAKE AND OUTPUT: Urine output recorded as 1.9 liters yesterday. Two liters so far today since overnight. Weight in the bed scale is 96.6 kg. PHYSICAL EXAMINATION: GENERAL APPEARANCE: The patient is awake, alert, oriented x3, slightly anxious, sitting up in the bed. HEAD AND NECK: Extraocular muscles intact. Pupils are equally round and reactive to light. Mucous membranes are moist. Neck is supple. There is no jugular venous distention. CARDIOVASCULAR: S1, S2, tachycardia. It is regular. EXTREMITIES: 2+ edema of the bilateral lower extremities. RESPIRATORY: Chest is clear to auscultation bilaterally. Bilaterally currently no rales or rhonchi. ABDOMEN: Soft, positive bowel sounds, nontender, no organomegaly. MUSCULOSKELETAL: No clubbing, no cyanosis. Pulses are 2+. PROFILING MACHINE SETUP OPERATOR: No focal deficits. Power is 5/5 in all extremities. PSYCH: The patient is anxious and tearful at this time. LAB REVIEW: CBC showed a WBC of 13, hemoglobin is 12.8, platelet count 161. BMP showed sodium 132, potassium 3.6, chloride 101, bicarbonate 22, BUN 33, creatinine is 2. Glucose is 200. C-reactive protein is 12. Troponin is less than 0.02. Triglycerides are 261, total cholesterol 170, LDL is 68. HDL is 50. Cholesterol to HDL level ratio is 3.4. Immunology: Still pending. Microbiology: All the cultures are negative so far. CURRENT INPATIENT MEDICATIONS: The patient's medications were all reviewed by myself. She continues to be on Lasix 40 mg IV q. 8 hourly. She is currently not on any antibiotics at this time. Insulin Levemir dose has been increased to 20 mg subcutaneously twice daily. I have started the patient on Lopressor 50 mg p.o. twice daily. There is no other significant change in the medications today. DIAGNOSTIC STUDIES: A bedside 12-lead EKG was done and reviewed. The patient has sinus tachycardia. ASSESSMENT AND PLAN: 1. Acute non oliguric renal failure with subnephrotic range proteinuria no known etiology, possibility of undiagnosed diabetes for a long time and recent use of [place] inhibitors, however I am going to have the patient's renal biopsy done tomorrow morning. The rest of the autoimmune serology is pending. 2. Lower extremity edema - continue current dose of Lasix at this time. The patient still has significant lower extremity edema. 3. Proteinuria - The patient has 1.1 gram protein on 24-hour urine. She is currently not started on steroids. A renal biopsy is being done tomorrow morning. 4. Sinus tachycardia - The patient has been started on Metoprolol 50 mg p.o. twice daily. 5. Newly diagnosed diabetes - The patient is on insulin sliding scale and Levemir. 6. Elevated C-reactive protein unknown etiology at this time. The patient is afebrile since the day she came to the hospital. She has mild persistent leukocytosis which is slowly getting better.
[2020-03-25] MEDS ORDERED: VANCOMYCIN HCL 1,000 MG, VIAL MATE ADAPTER 1 EACH in D5W 250 ML IV SCH (22:00)
--- NOTE | 2020-03-25 22:21 | REPVR ---
PROCEDURE INFORMATION: Exam: MR Cervical Spine Without Contrast Exam date and time: 03/25/2020 9:57 PM Age: 39 years old Clinical indication: Neck pain; Additional info: No contrast, anuj pain and extremity swelling TECHNIQUE: Imaging protocol: Multiplanar magnetic resonance images of the cervical spine without contrast. COMPARISON: No relevant prior studies available. FINDINGS: Vertebrae: There is decreased T1 signal in the vertebral bone marrow. Findings may suggest a marrow infiltrative process. Spinal cord: Normal signal. No cord compression. C2-C3: No significant disc disease. No significant spinal stenosis. C3-C4: Uncovertebral hypertrophy. No spinal canal stenosis. Moderate bilateral neural foraminal narrowing. C4-C5: Uncovertebral hypertrophy. No spinal canal stenosis. Moderate right and mild left neural foraminal narrowing. C5-C6: Uncovertebral hypertrophy. Mild spinal canal stenosis. Moderate bilateral neural foraminal narrowing. C6-C7: No significant disc disease. No significant spinal stenosis. C7-T1: No significant disc disease. No significant spinal stenosis. Vertebral arteries: Expected flow voids in the vertebral arteries. Soft tissues: Unremarkable. IMPRESSION: Diffuse decreased T1 signal in the vertebral bone marrow suggestive of marrow infiltrative process. Clinical correlation. Multilevel uncovertebral hypertrophy and degenerative disc disease with neural foraminal narrowing. Moderate bilateral neural foraminal narrowing at C3-C4, moderate right and mild left at C4-C5, moderate bilateral C5-C6. Mild spinal canal stenosis at C5-C6. Electronically signed by: Silverio Maurer On 03/25/2020 22:22:08 PM
--- NOTE | 2020-03-25 22:35 | REPVR ---
PROCEDURE INFORMATION: Exam: MR Lumbar Spine Without Contrast. Exam date and time: 03/25/2020 9:57 PM Age: 39 years old Clinical indication: Low back pain; Additional info: No contrast. Discitis TECHNIQUE: Imaging protocol: Multiplanar magnetic resonance images of the lumbar spine without intravenous contrast. COMPARISON: CT Spine, lumbar w/o contrast 03/22/2020 3:53 PM FINDINGS: Vertebrae: Decreased diffused T1 signal in the vertebral bone marrow. Grade 1 retrolisthesis of L5 over S1. Spinal cord: Normal signal. No cord compression. L1-L2: No significant disc disease. No significant spinal canal stenosis. No neural foraminal stenosis. L2-L3: No significant disc disease. No significant spinal canal stenosis. No neural foraminal stenosis. L3-L4: No significant disc disease. No significant spinal canal stenosis. No neural foraminal stenosis. L4-L5: Disc bulge. Bilateral facet hypertrophy. No spinal canal stenosis. No neural foraminal narrowing. L5-S1: Disc bulge. Bilateral facet hypertrophy. No spinal canal stenosis. Moderate bilateral neural foraminal narrowing. Soft tissues: Unremarkable. IMPRESSION: Diffuse decreased T1 signal in the vertebral bone marrow. Clinical correlation with marrow infiltrative process. Degenerative disc disease at L4-L5 and L5-S1 with moderate bilateral neural foraminal narrowing at L5-S1. Electronically signed by: Silverio Maurer On 03/25/2020 22:36:18 PM
--- NOTE | 2020-03-25 22:44 | REPVR ---
PROCEDURE INFORMATION: Exam: MR Thoracic Spine Without Contrast Exam date and time: 03/25/2020 10:02 PM Age: 39 years old Clinical indication: Pain in thoracic spine; Without myelpathy or radiculopathy; Additional info: No contrast. Discitis TECHNIQUE: Imaging protocol: Multiplanar magnetic resonance images of the thoracic spine without intravenous contrast. COMPARISON: No relevant prior studies available. FINDINGS: Vertebrae: Diffuse decreased T1 vertebral bone marrow signal. Spinal cord: Normal signal. No cord compression. T1-T2: No significant disc disease. No significant spinal canal stenosis. T2-T3: No significant disc disease. No significant spinal canal stenosis. T3-T4: No significant disc disease. No significant spinal canal stenosis. T4-T5: No significant disc disease. No significant spinal canal stenosis. T5-T6: No significant disc disease. No significant spinal canal stenosis. T6-T7: No significant disc disease. No significant spinal canal stenosis. T7-T8: No significant disc disease. No significant spinal canal stenosis. T8-T9: No significant disc disease. No significant spinal canal stenosis. T9-T10: No significant disc disease. No significant spinal canal stenosis. T10-T11: No significant disc disease. No significant spinal canal stenosis. T11-T12: Disc bulge. Moderate bilateral neural foraminal narrowing. No spinal canal stenosis. Soft tissues: Unremarkable. IMPRESSION: Diffuse decreased T1 vertebral bone marrow signal. Clinical correlation with marrow infiltrative process. Disc bulge at T11-T12 with moderate bilateral neural foraminal narrowing. Electronically signed by: Silverio Maurer On 03/25/2020 22:44:23 PM
[2020-03-26] VITALS (9 sets, daily range): BP systolic 125–148; BP diastolic 88–99
[2020-03-26] MEDS: FUROSEMIDE 40MG/4ML VIAL (J1940) IV SCH ×3 (04:02→20:12)
[2020-03-26 06:22] LABS: BASO # 0.1 10^3/uL (0.0-0.2); BASO % 0.5 % (0.0-1.0); EOS # 0.2 10^3/uL (0.0-0.5); EOS % 1.2 % (0.0-3.0); HEMATOCRIT 37.9 % (36.0-47.0); HEMOGLOBIN 12.5 g/dl (12.0-15.5); LYMPH # 2.3 10^3/uL (1.5-5.0); LYMPH % 18.3 % (24.0-44.0); MEAN CORPUSCULAR HEMOGLOBIN 28.9 pg (27.0-33.0); MEAN CORPUSCULAR VOLUME 87.5 fl (80.0-96.0); MONO # 1.3 10^3/uL (0.0-0.8); MONO % 10.4 % (0.0-5.0); NEUTROPHILS # 8.6 10^3/uL (1.5-8.5); NEUTROPHILS % 68.2 % (36.0-66.0); PLATELET COUNT, AUTOMATED 180 10^3/uL (150-450); RED BLOOD COUNT 4.33 10^6/uL (4.00-5.40); WHITE BLOOD COUNT 12.6 10^3/uL (4.0-10.0)
[2020-03-26 07:00] LABS: ALBUMIN 2.8 GM/DL (3.2-5.2); BILIRUBIN,TOTAL 0.7 MG/DL (0.2-1.0); CALCIUM LEVEL 9.1 MG/DL (8.5-10.1); CREATININE FOR GFR 2.09 MG/DL (0.55-1.30); GLOMERULAR FILTRATION RATE 27.9 (>58); MAGNESIUM LEVEL 2.4 MG/DL (1.8-2.4); POTASSIUM SERUM 3.8 MEQ/L (3.5-5.1); TOTAL PROTEIN 7.2 GM/DL (6.4-8.2)
[2020-03-26] MEDS: POTASSIUM CHLORIDE 10 MEQ SR TABLET PO SCH (08:32)
[2020-03-26] MEDS: METOPROLOL TART 50 MG TAB PO SCH ×2 (08:32→20:21)
[2020-03-26] MEDS: HumaLOG INSULIN (NovoLOG) PER UNIT SC SCH ×4 (08:33→20:14)
[2020-03-26] MEDS: LEVEMIR (INSULIN DETEMIR) 1 UNITS/0.01ML SC SCH ×2 (08:33→20:14)
--- NOTE | 2020-03-26 08:33 | REP ---
INDICATION: sepsis COMPARISON: None TECHNIQUE: Axial noncontrast images from the thoracic inlet to the upper abdomen with coronal and sagittal reformations. This CT examination was performed using the following dose reduction techniques: Automated exposure control, adjustment of mA and/or kv according to the patient's size, and use of iterative reconstruction technique. FINDINGS: Bilateral lung wayne are well aerated and essentially clear. Very minimal linear fibroatelectatic changes at the bilateral bases noted. No consolidation, significant nodule or mass. No pleural effusion. No pneumothorax. Tracheobronchial tree is patent. No obvious adenopathy. Further evaluation of the mediastinum demonstrates normal thoracic aorta, pulmonary vasculature, and heart/pericardium. Surrounding musculoskeletal structures are intact. IMPRESSION: No acute mediastinal or pleuroparenchymal process. <Electronically signed by David Santos > 03/26/20 [id number]
--- NOTE | 2020-03-26 08:37 | REP ---
INDICATION: sepsis COMPARISON: None TECHNIQUE: Axial noncontrast images from the lung bases to the pubic symphysis with coronal and sagittal reformations. This CT examination was performed using the following dose reduction techniques: Automated exposure control, adjustment of mA and/or kv according to the patient's size, and use of iterative reconstruction technique. FINDINGS: Liver, spleen, pancreas, gallbladder, bilateral adrenal glands and kidneys are essentially normal for noncontrast evaluation. The enteric system is without obstruction or acute inflammatory process. The pelvis demonstrates normal bladder and age-appropriate uterus/adnexa. No ascites. No free air. Abdominal aorta without aneurysm. There is subtle fat stranding in the retroperitoneal space in a somewhat perivascular distribution adjacent to the IVC and abdominal aorta as well as along the right perinephric space. There also appears to be subcutaneous edema along the bilateral flank extending through the hips. No associated drainable collection or significant adenopathy. These findings are of uncertain etiology or significance. IMPRESSION: 1. Subtle fat stranding in a retroperitoneal/perivascular distribution as described above as well as along the right perinephric space and with fat stranding/edema in the bilateral flank extending into the bilateral hips. These findings are nonspecific. No associated adenopathy or drainable collection/abscess. 2. Otherwise normal noncontrast CT of the abdomen and pelvis. <Electronically signed by David Santos > 03/26/20 [id number]
[2020-03-26] MEDS ORDERED: fentaNYL 100 MCG/2 ML INJECTION (J3010) As Ordered ONE (11:32)
[2020-03-26] MEDS ORDERED: diphenhydrAMINE 50MG/ML VIAL (J1200) As Ordered ONE (11:32)
[2020-03-26] MEDS ORDERED: MIDAZOLAM INJ 2MG/2ML VIAL (J2250 PER 1MG) As Ordered ONE (11:33)
[2020-03-26] MEDS ORDERED: LIDOCAINE 1% MDV 20ML VIAL As Ordered ONE (11:33)
--- NOTE | 2020-03-26 11:59 | IRMSE ---
[facility] IR Moderate Sedation Eval. Date and Time Date: Mar 26, 2020 Time: 11:58 ASA Classification ASA Classification: III-Severe systemic dis. Mallampati Score: II NPO: Yes Obstructive Sleep Apnea: No Interval Plan: moderate sedation JACKIE BLAS MD Mar 26, 2020 11:59
[2020-03-26 12:07] LABS: ANTI DS-DNA AB Negative (Negative)
--- NOTE | 2020-03-26 14:51 | IPNPDOC ---
Text Note Date of Service The patient was seen on 03/26/20. NOTE Subjective: No any acute events overnight. Objective: GENERAL APPEARANCE: NAD HEENT: no scleral icterus, no JVD, EOMI CARDIOVASCULAR: S1S2 LUNGS: CTA ABDOMEN: soft & not tender w palpitation MUSCULOSKELETAL: +3 nonpitting edema from the ankle to the middle of her hip INTEGUMENT: no generalized pallor Back: Tender to palpation over L2-L4 NEUROLOGICAL: cranial nerve function from 2-12 intact intact, follows commands, speech not dysarthric Assessment/Plan Patient is 39 years old female with past history of hypothyroidism, chronic back pain, goiter presented hospital with bilateral leg swelling. Patient stated that she went to urgent care 3 days ago because of exacerbation of chronic back pain, she received injection of Toradol and received ibuprofen. On the next day patient started feeling leg swelling bilaterally which progressively increased for past 2 days. In ER patient was found to have white blood count of 14.4, sedimentation rate of 43, creatinine 2.2, GFR 26, glucose level 346, d-dimer elevated to 4,000. Doppler ultrasound negative for DVT. Problems ASYA (acute kidney injury) Most likely intrinsic Secondary to NSAIDs and undiagnosed diabetes Autoimmune studies pending renal biopsy today Elevated d-dimer VQ scan showed low probability of PE DC oral anticoagulation Lower extremity edema Echo showed Normal left ventricular size, wall thickness, and hyperkinetic wall motion. Normal left atrial size and Doppler assessment of mean left atrial pressure. Normal right heart chamber sizes and motion and estimated pulmonary arterial pressure. Normal IVC size and collapse against an elevated central venous pressure. BNP within normal limit Nephrology team started Lasix IV Diabetes mellitus Diabetes diet HbA1c 10. Patient will need insulin in the outpatient settings Insulin sliding scale Detemir twice a day, glucose level not optimally controlled. I increased detemir twice a day to 20 units Hypothyroidism TSH and T4 with a normal limit Follow-up with scale tank operator in the outpatient settings Proteinuria Mostly secondary to diabetic nephropathy superimposed with NSAIDS 24 hours urine protein 1146 mg Sinus tachycardia EKG showed sinus tach Most likely secondary to severe anxiety Lorazepam when necessary Metoprolol 50 mg twice a day Back pain Patient has slight leukocytosis with back pain and increased sedimentation rate to 63 There is possibility of discitis MRI showed Diffuse decreased T1 vertebral bone marrow signal. Clinical correlation with marrow infiltrative process. I will discuss his findings with ID specialist CT chest and abdomen and pelvis unremarkable VS,Jad, I+O VS, Ale, I+O Laboratory Tests 03/26/20 05:48 Vital Signs Date Time Temp Pulse Resp B/P (MAP) Pulse Ox O2 Delivery O2 Flow Rate FiO2 03/26/20 13:35 90 18 99 Room Air 03/26/20 12:35 2 03/26/20 11:45 97.9 03/26/20 08:32 134/94 I&O- Last 24 Hours up to 6 AM 03/26/20 06:00 Intake Total 1350 ml Output Total 2150 ml Balance -800 ml WOLF JARQUIN DO Mar 26, 2020 14:51
[2020-03-26 16:13] LABS: ANCA-ATYPICAL <1:20 titer (Neg:<1:20); CYTOPLASMIC NEUTROP AB ANCA-C <1:20 titer (Neg:<1:20); PERINUCLEAR AB ANCA-P <1:20 titer (Neg:<1:20)
--- NOTE | 2020-03-26 18:45 | IPNPDOC ---
Subjective Date Seen The patient was seen on 03/26/20. Subjective Chief Complaint/HPI Pt is not tearful today. She was upset on hearing that she needed to have the kidney biopsy yesterday. However, she is coming to terms with getting a diagnosis for what is going on. She states that her legs feel better and she is doing better in general. She understands the importance of the renal biopsy. She also understands that there wasn't an inflammatory etiology found on MRI and was wondering why ID was consulted. She was counselled on the possibility of diskitis given her increased inflammatory markers and increased white blood cell count. She understands that antibiotics will be considered after the renal biopsy so that if new symptoms develop, there is no confusion as to whether the etiology would be adverse effects of the biopsy or the antibiotics. General: Denies: ROS Unobtainable, Chills, Night Sweats, Fatigue, Malaise, Normal Appetite, Other Symptoms Constitutional: Denies: Chills, Fever, Malaise, Night Sweats, Weakness, Fatigue, Weight Loss, Lethargy, Other Genitourinary: Denies: Dysuria Hematologic: Denies: Bruising, Bleeding Excessively Objective Physical Examination General Exam: Positive: Alert, Cooperative Eye Exam: Positive: Conjunctiva & lids normal ENT Exam: Positive: Atraumatic Neck Exam: Positive: Supple; Negative: JVD Chest Exam: Positive: Clear to auscultation Heart Exam: Positive: Tachycardic Telemetry: Positive: Sinus Abdomen Exam: Positive: Normal bowel sounds Extremity Exam: Positive: Edema (bilaterally up to hips, +2); Negative: Clubbing Skin Exam: Negative: Lesion Neuro Exam: Positive: Normal Gait, Strength at 5/5 X4 ext Psych Exam: Positive: Mental status NL Assessment /Plan Assessment #Acute non-oliguric renal failure with subnephrotic range proteinuria: etiology unclear, renal biopsy scheduled for today. Likely a result of undiagnosed diabetes causing diabetic nephropathy worsened by recent toradol use, or linked to prior SAMIRA-I use. Autoimmune labs are pending. Pt has 1.1 protein on 24 hour urine specimen. Steroid administration not considered at this time, pending renal biopsy results and ID input for inflammation as stated below. #Elevated inflammatory markers: CRP and ESR are elevated with leukocytosis. Consulted ID. They will investigate whether adding antibiotics is reasonable at this time. Autoimmune labs are pending. MRI of the spine showed bulging discs. Diskitis cannot be ruled out at this point. Antibiotics will likely be started after the renal biopsy is complete. #Lower extremity edema: Continue Lasix. There is still evidence of bilateral leg edema up to the hips. #Newly diagnosed diabetes: Pt is being treated with Levemir and insulin on a sliding scale. #Sinus tachycardia with shortened [place] interval: pt is on metoprolol tartrate 50 mg PO with holding parameters for SBP <120 and HR<60. This was started yesterday after the pt was seen to have sinus tachycardia. EKG was read by Dr. Driscoll on 03/25/2020, with dx of sinus tachycardia with shortened [place] interval. Plan/VTE VTE Prophylaxis Ordered?: No GME ATTESTATION My faculty preceptor for this patient encounter was physically present during the encounter and was fully available. All aspects of the patient interview, exa mination, medical decision making process, and medical care plan development were reviewed and approved by the faculty preceptor. The faculty preceptor is aware and concurs with the plan as stated in the body of this note and will attest to such by his/her cosignature. VS, I&O, 24H, Fishbone Vital Signs/I&O Vital Signs Date Time Temp Pulse Resp B/P (MAP) Pulse Ox O2 Delivery O2 Flow Rate FiO2 03/26/20 16:00 98.2 110 19 145/94 (111) 96 Room Air 03/26/20 12:35 2 I&O- Last 24 Hours up to 6 AM 03/26/20 06:00 Intake Total 1350 ml Output Total 2150 ml Balance -800 ml Laboratory Data 24H LABS Laboratory Tests 2 03/25/20 19:52: Bedside Glucose (Misc Panel) 236H 03/26/20 05:48: Immature Granulocyte % (Auto) 1.4, Neutrophils (%) (Auto) 68.2H, Lymphocytes (%) (Auto) 18.3L, Monocytes (%) (Auto) 10.4H, Eosinophils (%) (Auto) 1.2, Basophils (%) (Auto) 0.5, Neutrophils # (Auto) 8.6H, Lymphocytes # (Auto) 2.3, Monocytes # (Auto) 1.3H, Eosinophils # (Auto) 0.2, Basophils # (Auto) 0.1, Nucleated Red Blood Cells % (auto) 0.0, Anion Gap 8, Glomerular Filtration Rate 27.9L, Calcium Level 9.1, Magnesium Level 2.4, Total Bilirubin 0.7, Aspartate Amino Transf (AST/SGOT) 18, Alanine Aminotransferase (ALT/SGPT) 37, Alkaline Phosphatase 97, Total Protein 7.2, Albumin 2.8L, Albumin/Globulin Ratio 0.6L, Procalcitonin 0.10 03/26/20 16:43: Bedside Glucose (Misc Panel) 237H CBC/BMP Laboratory Tests 03/26/20 05:48 Microbiology Microbiology 03/22/20 Blood Culture - Preliminary, Resulted No Growth after 72 hours. All specime... 03/22/20 Urine Culture - Final, Complete 03/22/20 Blood Culture - Preliminary, Resulted No Growth after 72 hours. All specime... Attending Note Attending Note ASYA, Subnephrotic proteinuria, Le edema, Elevated Acute phase reactants, Newly diagnosed DM Renal biopsy today, No steroids at this time. No SAMIRA/ARB at this time. Decision to start Abx as per ID. Cont Lasix IV for now. Dell Mccarty DO Mar 26, 2020 18:45 LASHELL MCCARTY MD Mar 27, 2020 20:16
[2020-03-26] MEDS: PERCOCET 5MG/325MG TAB PO PRN (22:45)
[2020-03-27 04:04] VITALS: BP 128/80
[2020-03-27] MEDS: FUROSEMIDE 40MG/4ML VIAL (J1940) IV SCH (04:09)
[2020-03-27 05:51] LABS: BASO # 0.1 10^3/uL (0.0-0.2); BASO % 0.5 % (0.0-1.0); EOS # 0.2 10^3/uL (0.0-0.5); EOS % 1.2 % (0.0-3.0); HEMATOCRIT 38.4 % (36.0-47.0); HEMOGLOBIN 12.3 g/dl (12.0-15.5); LYMPH # 2.6 10^3/uL (1.5-5.0); MEAN CORPUSCULAR HEMOGLOBIN 28.3 pg (27.0-33.0); MEAN CORPUSCULAR VOLUME 88.3 fl (80.0-96.0); MONO # 1.2 10^3/uL (0.0-0.8); NEUTROPHILS % 65.8 % (36.0-66.0); PLATELET COUNT, AUTOMATED 190 10^3/uL (150-450); RED BLOOD COUNT 4.35 10^6/uL (4.00-5.40); WHITE BLOOD COUNT 12.2 10^3/uL (4.0-10.0)
[2020-03-27 06:00] VITALS: BP 128/91
[2020-03-27 06:25] LABS: ALBUMIN 2.9 GM/DL (3.2-5.2); BILIRUBIN,TOTAL 0.6 MG/DL (0.2-1.0); CALCIUM LEVEL 8.6 MG/DL (8.5-10.1); CREATININE FOR GFR 2.08 MG/DL (0.55-1.30); GLOMERULAR FILTRATION RATE 28.1 (>58); MAGNESIUM LEVEL 2.3 MG/DL (1.8-2.4); POTASSIUM SERUM 3.8 MEQ/L (3.5-5.1); TOTAL PROTEIN 7.4 GM/DL (6.4-8.2)
[2020-03-27] MEDS: POTASSIUM CHLORIDE 10 MEQ SR TABLET PO SCH (09:11)
[2020-03-27] MEDS: HumaLOG INSULIN (NovoLOG) PER UNIT SC SCH ×4 (09:14→20:52)
[2020-03-27] MEDS: LEVEMIR (INSULIN DETEMIR) 1 UNITS/0.01ML SC SCH ×2 (09:15→20:52)
[2020-03-27] MEDS: METOPROLOL TART 50 MG TAB PO SCH ×3 (09:16→20:51)
[2020-03-27 09:20] LABS: C REACTIVE PROTEIN QUANTITATIV 10.5 MG/DL (0.00-0.30)
[2020-03-27 09:42] LABS: ERYTHROCYTE SEDIMENTATION RATE 82 mm/hr (0-20)
[2020-03-27] MEDS: LORazepam 0.5 MG TAB PO PRN (10:57)
[2020-03-27] MEDS: PERCOCET 5MG/325MG TAB PO PRN ×2 (10:58→20:50)
[2020-03-27 14:00] VITALS: BP 131/90
--- NOTE | 2020-03-27 15:44 | POST-OPPD ---
Postoperative Procedure Note Date Of Procedure: Mar 26, 2020 Time Of Procedure: 16:[address] Guided kidney biopsy. IR Moderate sedation. Clinical Information:Renal failure. Physician: Dr. Schuster. Procedure: The patient was advised of the benefits, risks, and alternatives of the procedure and informed consent was obtained. A time out was performed with verification of the patient's name, MRN, site of procedure, and type of procedure to be performed. The patient was positioned in the prone position on the CT table. The site was prepped and draped in the usual sterile fashion. Moderate sedation was performed by the physician including the presence of an independent trained RN who assisted in monitoring the patient's level of consciousness and physiological status. Following the administration of fent anyl and Versed, the physician spent 45 minutes of continuous [id number] time with the patient. Preliminary CT demonstrates unremarkable left kidney. The skin and expected tract were anesthetized with lidocaine.A 17-gauge coaxial needle was advanced under intermittent CT guidance to the left kidney lower pole cortex. An 18-gauge Biopince device was advanced through the coaxial needle and used to obtain 3 cores through the lower pole of the kidney, with CT confirmation. The needle was removed, pressure held and hemostasis achieved. A follow-up CT through the area demonstrates no significant hematoma. A sterile dressing was applied to the site. The patient tolerated the procedure well and was returned to the PRU in stable condition. EBL:Less than 5 mL. Complications:None. Conclusion:1. CT demonstrates unremarkable left kidney. 2. Successful CT-guided renal biopsy. Patient to follow-up with referring provider for biopsy results. Thank you for this referral. JACKIE SCHUSTER MD Mar 27, 2020 15:44
--- NOTE | 2020-03-27 15:59 | IPNPDOC ---
Text Note Date of Service The patient was seen on 03/27/20. NOTE Subjective: No any acute events overnight. Patient stated that her legs swelling slightly improved Objective: GENERAL APPEARANCE: NAD HEENT: no scleral icterus, no JVD, EOMI CARDIOVASCULAR: S1S2 LUNGS: CTA ABDOMEN: soft & not tender w palpitation MUSCULOSKELETAL: +3 nonpitting edema from the ankle to the middle of her hip INTEGUMENT: no generalized pallor Back: Tender to palpation over L2-L4 NEUROLOGICAL: cranial nerve function from 2-12 intact intact, follows commands, speech not dysarthric Assessment/Plan Patient is 39 years old female with past history of hypothyroidism, chronic back pain, goiter presented hospital with bilateral leg swelling. Patient stated that she went to urgent care 3 days ago because of exacerbation of chronic back pain, she received injection of Toradol and received ibuprofen. On the next day patient started feeling leg swelling bilaterally which progressively increased for past 2 days. In ER patient was found to have white blood count of 14.4, sedimentation rate of 43, creatinine 2.2, GFR 26, glucose level 346, d-dimer elevated to 4,000. Doppler ultrasound negative for DVT. Problems ASYA (acute kidney injury) Most likely intrinsic Secondary to NSAIDs and undiagnosed diabetes Autoimmune studies negative Await results of the renal biopsy Elevated d-dimer VQ scan showed low probability of PE DC oral anticoagulation Lower extremity edema Echo showed Normal left ventricular size, wall thickness, and hyperkinetic wall motion. Normal left atrial size and Doppler assessment of mean left atrial pressure. Normal right heart chamber sizes and motion and estimated pulmonary arterial pressure. Normal IVC size and collapse against an elevated central venous pressure. BNP within normal limit Nephrology team started Lasix IV Diabetes mellitus Diabetes diet HbA1c 10. Patient will need insulin in the outpatient settings Insulin sliding scale Detemir twice a day, glucose level not optimally controlled. I increased detemir twice a day to 20 units Glucose level under control Hypothyroidism TSH and T4 with a normal limit Follow-up with cylinder honer in the outpatient settings Proteinuria Mostly secondary to diabetic nephropathy superimposed with NSAIDS 24 hours urine protein 1146 mg Sinus tachycardia EKG showed sinus tach Most likely secondary to severe anxiety Lorazepam when necessary I increased the dose of Metoprolol 50 mg 3 times a day Back pain Patient has slight leukocytosis with back pain and increased sedimentation rate to 63 There is possibility of discitis MRI showed Diffuse decreased T1 vertebral bone marrow signal. Clinical correlation with marrow infiltrative process. I will discuss his findings with ID specialist CT chest and abdomen and pelvis unremarkable VS,Fishbone, I+O VS, Fishbone, I+O Laboratory Tests 03/27/20 05:29 Vital Signs Date Time Temp Pulse Resp B/P (MAP) Pulse Ox O2 Delivery O2 Flow Rate FiO2 03/27/20 14:00 98.4 107 19 131/90 (104) 96 Room Air 03/26/20 12:35 2 I&O- Last 24 Hours up to 6 AM0 03/27/20 06:00 Intake Total 970 ml Output Total 1350 ml Balance -380 ml WOLF JARQUIN DO Mar 27, 2020 15:59
[2020-03-27 16:09] LABS: Lyme Disease IgG/IgM Antibodie <0.91 ISR (0.00-0.90); Lyme Disease IgM Ab Quantitati <0.80 index (0.00-0.79)
[2020-03-27] MEDS: TORSEMIDE 20 MG TAB PO SCH (17:26)
--- NOTE | 2020-03-27 19:25 | IPNPDOC ---
Subjective Date Seen The patient was seen on 03/27/20. Subjective Chief Complaint/HPI Pt is feeling well today after having the biopsy done yesterday. Nursing staff and pt report no new events overnight. The pt still continues to have edema in her legs. General: Denies: ROS Unobtainable, Chills, Night Sweats, Fatigue, Malaise, Normal Appetite, Other Symptoms Constitutional: Denies: Chills, Fever, Malaise, Night Sweats, Weakness, Fatigue, Weight Loss, Lethargy, Other Objective Physical Examination General Exam: Positive: Alert, Cooperative Eye Exam: Positive: Conjunctiva & lids normal ENT Exam: Positive: Atraumatic Neck Exam: Positive: Supple; Negative: JVD Chest Exam: Positive: Clear to auscultation Heart Exam: Positive: Tachycardic Telemetry: Positive: Sinus Abdomen Exam: Positive: Normal bowel sounds Extremity Exam: Positive: Edema (bilaterally up to hips, +2); Negative: Clubbing Skin Exam: Negative: Lesion Neuro Exam: Positive: Normal Gait, Strength at 5/5 X4 ext Psych Exam: Positive: Mental status NL Assessment /Plan Assessment #Acute non-oliguric renal failure with subnephrotic range proteinuria: etiology unclear, renal biopsy done yesterday, and results pending. Likely a result of undiagnosed diabetes causing diabetic nephropathy worsened by recent toradol use, or linked to prior SAMIRA-I use. Autoimmune labs are pending. Pt has 1.1 p rotein on 24 hour urine specimen. Steroid administration not considered at this time, pending renal biopsy results and ID input for inflammation as stated below. #Elevated inflammatory markers: CRP and ESR are elevated with leukocytosis. Consulted ID. They will investigate whether adding antibiotics is reasonable at this time. MRI of the spine showed bulging discs. Diskitis cannot be ruled out at this point. #Lower extremity edema: Changed Lasix to Torsemide. Holding parameters SBP<120. There is still evidence of bilateral leg edema up to the hips. #Newly diagnosed diabetes: Pt is being treated with Levemir and insulin on a sliding scale. #Sinus tachycardia with shortened [place] interval: pt is on metoprolol tartrate 50 mg PO with holding parameters for SBP <120 and HR<60. This was started yesterday after the pt was seen to have sinus tachycardia. EKG was read by Dr. Driscoll on 03/25/2020, with dx of sinus tachycardia with shortened [place] interval. Plan/VTE VTE Prophylaxis Ordered?: No GME ATTESTATION My faculty preceptor for this patient encounter was physically present during the encounter and was fully available. All aspects of the patient interview, examination, medical decision making process, and medical care plan development were reviewed and approved by the faculty preceptor. The faculty preceptor is aware and concurs with the plan as stated in the body of this note and will attest to such by his/her cosignature. VS, I&O, 24H, Fishbone Vital Signs/I&O Vital Signs Date Time Temp Pulse Resp B/P (MAP) Pulse Ox O2 Delivery O2 Flow Rate FiO2 03/27/20 17:26 105 130/90 03/27/20 14:00 98.4 19 96 Room Air 03/26/20 12:35 2 I&O- Last 24 Hours up to 6 AM 03/27/20 05:59 Intake Total 970 ml Output Total 1350 ml Balance -380 ml Laboratory Data 24H LABS Laboratory Tests 2 03/26/20 19:53: Bedside Glucose (Misc Panel) 321H 03/27/20 05:29: Immature Granulocyte % (Auto) 1.5, Neutrophils (%) (Auto) 65.8, Lymphocytes (%) (Auto) 21.0L, Monocytes (%) (Auto) 10.0H, Eosinophils (%) (Auto) 1.2, Basophils (%) (Auto) 0.5, Neutrophils # (Auto) 8.0, Lymphocytes # (Auto) 2.6, Monocytes # (Auto) 1.2H, Eosinophils # (Auto) 0.2, Basophils # (Auto) 0.1, Nucleated Red Blood Cells % (auto) 0.0, Erythrocyte Sedimentation Rate 82H, Anion Gap 12, Glomerular Filtration Rate 28.1L, Calcium Level 8.6, Magnesium Level 2.3, Total Bilirubin 0.6, Aspartate Amino Transf (AST/SGOT) 26, Alanine Aminotransferase (ALT/SGPT) 41, Alkaline Phosphatase 104, C-Reactive Protein, Quantitative 10.50H, Total Protein 7.4, Albumin 2.9L, Albumin/Globulin Ratio 0.6L 03/27/20 12:31: Bedside Glucose (Misc Panel) 160H 03/27/20 16:58: Bedside Glucose (Misc Panel) 207H CBC/BMP Laboratory Tests 03/27/20 05:29 Microbiology Microbiology 03/22/20 Blood Culture - Final, Complete NO GROWTH AFTER 5 DAYS 03/22/20 Urine Culture - Final, Complete 03/22/20 Blood Culture - Final, Complete NO GROWTH AFTER 5 DAYS Attending Note Attending Note ASYA, Subnephrotic range proteinuria, LE Edema, elevated inflammatory markers and back pain, s/p renal biopsy, Sinus tachy and newly diagnosed DM. Metoprolol increased. Change diuretic to oral, fluid restriction. No steroids until biopsy results. Inflammatory work up as per ID. Dell Mccarty DO Mar 27, 2020 19:25 LASHELL MCCARTY MD Mar 27, 2020 20:27
[2020-03-27 22:00] VITALS: BP 127/86
[2020-03-28] MEDS: PERCOCET 5MG/325MG TAB PO PRN ×2 (05:00→23:16)
[2020-03-28 06:00] VITALS: BP 125/85
[2020-03-28 07:04] LABS: BASO # 0.1 10^3/uL (0.0-0.2); BASO % 0.5 % (0.0-1.0); EOS # 0.2 10^3/uL (0.0-0.5); EOS % 1.2 % (0.0-3.0); HEMATOCRIT 38.2 % (36.0-47.0); HEMOGLOBIN 12.5 g/dl (12.0-15.5); LYMPH # 2.2 10^3/uL (1.5-5.0); MEAN CORPUSCULAR HEMOGLOBIN 28.8 pg (27.0-33.0); MEAN CORPUSCULAR HGB CONC 32.7 g/dl (32.0-36.5); MONO # 1.2 10^3/uL (0.0-0.8); MONO % 9.4 % (0.0-5.0); NEUTROPHILS % 70.4 % (36.0-66.0); PLATELET COUNT, AUTOMATED 187 10^3/uL (150-450); RED BLOOD COUNT 4.34 10^6/uL (4.00-5.40); WHITE BLOOD COUNT 12.7 10^3/uL (4.0-10.0)
[2020-03-28 07:39] LABS: ALBUMIN 2.9 GM/DL (3.2-5.2); BILIRUBIN,TOTAL 0.6 MG/DL (0.2-1.0); CALCIUM LEVEL 9.2 MG/DL (8.5-10.1); CREATININE FOR GFR 2.28 MG/DL (0.55-1.30); GLOMERULAR FILTRATION RATE 25.3 (>58); MAGNESIUM LEVEL 2.5 MG/DL (1.8-2.4); POTASSIUM SERUM 3.9 MEQ/L (3.5-5.1); TOTAL PROTEIN 7.4 GM/DL (6.4-8.2)
[2020-03-28] MEDS: TORSEMIDE 20 MG TAB PO SCH ×2 (08:46→17:21)
[2020-03-28] MEDS: HumaLOG INSULIN (NovoLOG) PER UNIT SC SCH ×4 (08:46→21:23)
[2020-03-28] MEDS: LEVEMIR (INSULIN DETEMIR) 1 UNITS/0.01ML SC SCH ×2 (08:46→21:23)
[2020-03-28] MEDS: POTASSIUM CHLORIDE 10 MEQ SR TABLET PO SCH (08:47)
[2020-03-28] MEDS: METOPROLOL TART 50 MG TAB PO SCH ×3 (08:49→21:22)
[2020-03-28] MEDS ORDERED: metOLazone 5 MG TAB PO ONE (12:00)
--- NOTE | 2020-03-28 13:01 | CR ---
CONSULTATION DATE: 03/27 REASON FOR CONSULTATION: I was asked to consult by Dr. Corley for evaluation of abnormal MRI of the thoracic spine with low back pain. HISTORY OF PRESENT ILLNESS: Gabriella is a pleasant, 39-year-old female who presented to [facility] on March 22 complaining of lower extremity edema, chest pain and back pain. The patient has chronic back pain from a lumbar L1 compression fracture many years ago. She went to an urgent care complaining of worsening back pain three days prior to admission. She was given an injection of Toradol and then ibuprofen. The next day, she noticed she was having increased lower extremity edema which worsened over the next couple days. She came to the emergency room here she was noted to have an elevated creatinine of 2.2, elevated white count, sed rate, CRP. Lower extremity Dopplers were negative. The patient was admitted for a workup of acute kidney injury and lower extremity edema. She had a renal biopsy, results of which are still pending. PAST MEDICAL HISTORY: Significant for lumbar fracture at L1 with chronic low back pain, goiter. PAST SURGICAL HISTORY: No known past surgical history. ALLERGIES: SULFA. FAMILY HISTORY: No history of renal disease. SOCIAL HISTORY: She does not smoke, use drugs or alcohol. She works for the [employer] in the [employer] and never been , doses not have kids. REVIEW OF SYSTEMS: She has had no fever, chills, no nausea, vomiting or diarrhea, no blurry vision, no headache. She had mild chest pain on admission that resolved, mild shortness of breath. She complained of lower extremity and back pain which is a little worse than her chronic back pain. She does not have thoracic or neck pain. PHYSICAL EXAMINATION: She is pleasant, alert and oriented in no acute distress. Heart: Normal S1, S2, no murmurs, rubs or gallops. Lungs: Clear. No wheezes, rales or rhonchi. Abdomen: Soft, nontender, no hepatosplenomegaly. Extremities: No clubbing, cyanosis. She has +2 pitting edema bilaterally all the way up to the knees. Neurologic exam: Alert and oriented x3. Strength normal, 5/5. She has mild lumbosacral tenderness, L1 through L5 but no thoracic or cervical tenderness. LABORATORY DATA: Rheumatoid factor less than 10, MARVIN negative, ANCA less than 120, antimyeloperoxidase less than 9, double-stranded DNA negative. Glomerular basement membrane serology is pending. C3 163. Sodium 136, potassium 3.8, chloride 100, bicarb 24, BUN 38, creatinine 2.08, GFR 28, glucose 160. AST 26, ALT 41, alk phos 104. CRP 10.5 and was 14.5 on admission. Albumin 2.4, triglycerides 261, total cholesterol 170, procalcitonin 0.1.White count 14.4, hemoglobin 13.6, hematocrit 41.1, platelets 155. EFR 43 on admission, today EFR is 82. White count 12.2, hemoglobin 12.3, hematocrit 38.4, platelets 190. Hemoglobin A1c was 10. Blood cultures, two sets ordered on 03/22 were no growth. After five days, urine culture was negative. MEDICATIONS: Torsemide 40 mg p.o. b.i.d., metoprolol 50 mg p.o. t.i.d., Percocet one tablet q.6 p.r.n. pain, potassium 20 mEq p.o. daily, Levemir 20 units subcu b.i.d., lorazepam 0.5 mg q.8 p.r.n. Flu vaccine was ordered, Zofran p.r.n. IMAGING: CT, abdomen and pelvis shows subtle fat stranding in the retroperitoneal space in somewhat a perivascular distribution adjacent to the IVC and abdominal aorta along the right perinephric space. There also appears to be subcutaneous edema along bilateral flank areas extending through the hips. No associated drainable fluid collection. These findings are nonspecific, no associated adenopathy or drainable collection abscess. CT of chest: No acute mediastinal or pleural parenchymal process. Very minimal linear fibroatelectatic changes at both bilateral bases, no consolidation, pleural effusion, no pneumothorax, no obvious adenopathy. Lung V/Q scan showed low probability for PE. Lumbar spine MRI showed evidence of old compression fracture at L1, decreased T1 signal in the vertebral bone marrow. Clinical correlation with marrow infiltrative process is recommended. Degenerative disease at L4-5, L5-S1 and bilateral neural foraminal narrowing at L5-S1. IMPRESSION: This is a 39-year-old female admitted with lower extremity edema and severe low back pain, was found to have kidney disease with creatinine of 2. She underwent a renal biopsy for further workup. She had fluid retention and has been diuresed with improvement. She has low back pain which for the most part is chronic but has worsened over the past two weeks associated with some abnormal MRI findings of T1 signal in the vertebral bone marrow. This is not a clinical diagnosis of discitis. Her back is minimal. She can move. She does not have point tenderness. In spite of increased ESR and CRP, I am not convinced she has discitis. I will review her MRI findings with radiology. PLAN: Recommend do not start any antibiotics at this point. We will review MRIs with radiology. Obtain HIV testing, QuantiFERON-TB Gold. MTDD
[2020-03-28 14:00] VITALS: BP 125/82
--- NOTE | 2020-03-28 18:15 | IPN ---
PROGRESS NOTE DATE: 03/28/2020 Gabriella is doing well. She still has low back pain, but otherwise no change. Temperature is 98, pulse 118, respirations 12, blood pressure 125/82, oxygen saturation 96% on room air. LABORATORY DATA: White count 12.7, hemoglobin 12.5, hematocrit 38.2, platelets 187, 70% neutrophils, 17% lymphocytes, 10% monocytes, ESR 82. Sodium 138, potassium 3.9, chloride 105, bicarbonate 27, BUN 49, creatinine 2.28, glucose 141, magnesium 2.5, calcium 9.2, CRP 10.5. Procalcitonin 0.1. Serology: QuantiFERON-TB Gold is pending. HIV was negative. Hepatitis B and C serology were negative. ANCA negative. Rheumatoid factor less than 10. MARVIN negative. Complement C3 normal, 163. Blood cultures negative. Urine culture negative. MRI findings were discussed with Dr. Lin, who stated that T1 diminished enhancement, decreased signal in the bone marrow is very nonspecific and is not usually associated with discitis. PHYSICAL EXAMINATION: She has mild lumbosacral tenderness. IMPRESSION: 1. Low Back pain, nonspecific, definitely no clinical suggesting of discitis. Case Discussed with radiology findings non specific and no suggestion of discitis 2. Acute nonoliguric renal failure with subnephrotic-range proteinuria. Biopsy was done. The results were sent to [facility], and they will not be available until next week Autoimmune workup so far negative. 3. Elevated inflammatory markers, including white count, C-reactive protein (CRP), and erythrocyte sedimentation rate (ESR), are all related to probably underlying kidney injury, possibly autoimmune disease PLAN: Infectious disease is signing off. There is no need for antibiotic or further infectious disease (ID) workup, Please follow QuantiFERON-TB Gold as an outpatient. MTDD
--- NOTE | 2020-03-28 18:40 | IPNPDOC ---
Text Note Date of Service The patient was seen on 03/28/20. NOTE Subjective: No any acute events overnight. Patient stated that her legs swelling Objective: GENERAL APPEARANCE: NAD HEENT: no scleral icterus, no JVD, EOMI CARDIOVASCULAR: S1S2 LUNGS: CTA ABDOMEN: soft & not tender w palpitation MUSCULOSKELETAL: +3 nonpitting edema from the ankle to the middle of her hip INTEGUMENT: no generalized pallor Back: Tender to palpation over L2-L4 NEUROLOGICAL: cranial nerve function from 2-12 intact intact, follows commands, speech not dysarthric Assessment/Plan Patient is 39 years old female with past history of hypothyroidism, chronic back pain, goiter presented hospital with bilateral leg swelling. Patient stated that she went to urgent care 3 days ago because of exacerbation of chronic back pain, she received injection of Toradol and received ibuprofen. On the next day patient started feeling leg swelling bilaterally which progressively increased for past 2 days. In ER patient was found to have white blood count of 14.4, sedimentation rate of 43, creatinine 2.2, GFR 26, glucose level 346, d-dimer elevated to 4,000. Doppler ultrasound negative for DVT. Problems ASYA (acute kidney injury) Most likely intrinsic Secondary to NSAIDs and undiagnosed diabetes Autoimmune studies negative Await results of the renal biopsy Elevated d-dimer VQ scan showed low probability of PE DC oral anticoagulation Lower extremity edema Echo showed Normal left ventricular size, wall thickness, and hyperkinetic wall motion. Normal left atrial size and Doppler assessment of mean left atrial pressure. Normal right heart chamber sizes and motion and estimated pulmonary arterial pressure. Normal IVC size and collapse against an elevated central venous pressure. BNP within normal limit Nephrology team started Lasix IV Diabetes mellitus Diabetes diet HbA1c 10. Patient will need insulin in the outpatient settings Insulin sliding scale Detemir twice a day, glucose level not optimally controlled. I increased detemir twice a day to 20 units Glucose level under control Hypothyroidism TSH and T4 with a normal limit Follow-up with asset protection lead in the outpatient settings Proteinuria Mostly secondary to diabetic nephropathy superimposed with NSAIDS 24 hours urine protein 1146 mg Sinus tachycardia EKG showed sinus tach Most likely secondary to severe anxiety Lorazepam when necessary I increased the dose of Metoprolol 50 mg 3 times a day Back pain Patient has slight leukocytosis with back pain and increased sedimentation rate to 63 There is possibility of discitis MRI showed Diffuse decreased T1 vertebral bone marrow signal. Clinical correlation with marrow infiltrative process. I discussed the findings with radiologist. Most likely these findings not pertinent Dr. Luna does not feel that patient has infectious process CT chest and abdomen and pelvis unremarkable VS,Jad, I+O VS, Yamilbone, I+O Laboratory Tests 03/28/20 06:47 Vital Signs Date Time Temp Pulse Resp B/P (MAP) Pulse Ox O2 Delivery O2 Flow Rate FiO2 03/28/20 17:24 116 143/103 03/28/20 14:00 98.0 12 96 03/28/20 06:00 Room Air 03/26/20 12:35 2 I&O- Last 24 Hours up to 6 AM 03/28/20 05:59 Intake Total 1020 ml Output Total 1350 ml Balance -330 ml WOLF JARQUIN DO Mar 28, 2020 18:40
[2020-03-28 22:00] VITALS: BP 140/73
[2020-03-29 06:00] VITALS: BP 132/75
[2020-03-29 06:28] LABS: BASO # 0.1 10^3/uL (0.0-0.2); BASO % 0.4 % (0.0-1.0); EOS # 0.1 10^3/uL (0.0-0.5); EOS % 0.5 % (0.0-3.0); HEMATOCRIT 37.6 % (36.0-47.0); LYMPH # 2.5 10^3/uL (1.5-5.0); LYMPH % 17.5 % (24.0-44.0); MEAN CORPUSCULAR HGB CONC 31.9 g/dl (32.0-36.5); MEAN CORPUSCULAR VOLUME 87.9 fl (80.0-96.0); MONO # 1.3 10^3/uL (0.0-0.8); MONO % 9.4 % (0.0-5.0); NEUTROPHILS # 9.9 10^3/uL (1.5-8.5); NEUTROPHILS % 70.6 % (36.0-66.0); PLATELET COUNT, AUTOMATED 174 10^3/uL (150-450); RED BLOOD COUNT 4.28 10^6/uL (4.00-5.40)
[2020-03-29 06:54] LABS: ALBUMIN 3.1 GM/DL (3.2-5.2); BILIRUBIN,TOTAL 0.6 MG/DL (0.2-1.0); CALCIUM LEVEL 9.6 MG/DL (8.5-10.1); CREATININE FOR GFR 3.09 MG/DL (0.55-1.30); GLOMERULAR FILTRATION RATE 17.8 (>58); MAGNESIUM LEVEL 2.6 MG/DL (1.8-2.4); POTASSIUM SERUM 3.8 MEQ/L (3.5-5.1); TOTAL PROTEIN 7.4 GM/DL (6.4-8.2)
[2020-03-29] MEDS: HumaLOG INSULIN (NovoLOG) PER UNIT SC SCH ×2 (08:24→12:19)
[2020-03-29] MEDS: LEVEMIR (INSULIN DETEMIR) 1 UNITS/0.01ML SC SCH (08:25)
[2020-03-29] MEDS: TORSEMIDE 20 MG TAB PO SCH (08:25)
[2020-03-29] MEDS: POTASSIUM CHLORIDE 10 MEQ SR TABLET PO SCH (08:25)
[2020-03-29 08:27] VITALS: BP 127/88
[2020-03-29] MEDS: METOPROLOL TART 50 MG TAB PO SCH (08:27)
[2020-03-29] MEDS ORDERED: LOPR1TAB6 PO ×2 (10:52→10:56)
[2020-03-29] MEDS ORDERED: BLOOKIT21 XX ×2 (10:52→10:56)
[2020-03-29] MEDS ORDERED: KLOR10TA76 PO (10:52)
[2020-03-29] MEDS ORDERED: PEN1MIS21 SC ×2 (10:52→10:56)
[2020-03-29] MEDS ORDERED: ALCOPAD25 TOP ×2 (10:52→10:56)
[2020-03-29] MEDS ORDERED: INSU1MIS20 SC ×2 (10:52→10:56)
[2020-03-29] MEDS ORDERED: GLUC1TES2 XX ×2 (10:52→10:56)
[2020-03-29] MEDS ORDERED: LANC30MI XX ×2 (10:52→10:56)
[2020-03-29] MEDS ORDERED: TORS20TA2 PO ×2 (10:52→10:56)
[2020-03-29] MEDS ORDERED: LANTINJ4 SC (10:56)
--- NOTE | 2020-03-29 13:51 | IPNPDOC ---
Subjective Date Seen The patient was seen on 03/29/20. Subjective Chief Complaint/HPI Patient is seen today at bedside. Patient states that she is feeling better. Nursing staff and patient do not report any overnight events. Patient is looking forward to being discharged today. She is hoping to get an leave of absence letter for work from the primary medical team. General: Denies: ROS Unobtainable, Chills, Night Sweats, Fatigue, Malaise, Normal Appetite, Other Symptoms Constitutional: Denies: Chills, Fever, Malaise, Night Sweats, Weakness, Fatigue, Weight Loss, Lethargy, Other Pulmonary: Denies: Dyspnea, Cough, Pleuritic Chest Pain, Other Symptoms Objective Physical Examination General Exam: Positive: Alert, Cooperative Eye Exam: Positive: Conjunctiva & lids normal ENT Exam: Positive: Atraumatic Neck Exam: Positive: Supple; Negative: JVD Chest Exam: Positive: Clear to auscultation, Normal air movement; Negative: Rales, Rhonchi, Wheezing, Diminished Heart Exam: Positive: Tachycardic Telemetry: Positive: Sinus Abdomen Exam: Positive: Normal bowel sounds Extremity Exam: Positive: Edema (bilaterally up to hips, +2, continues to improve.); Negative: Clubbing Skin Exam: Negative: Lesion Neuro Exam: Positive: Normal Gait, Strength at 5/5 X4 ext Psych Exam: Positive: Mental status NL Assessment /Plan Assessment #Acute non-oliguric renal failure with subnephrotic range proteinuria: etiology unclear, biopsy came back inconclusive, showing mild interstitial nephritis. Likely a result of undiagnosed diabetes causing diabetic nephropathy worsened by recent toradol use, or linked to prior SAMIRA-I use. Pt has 1.1 protein on 24 hour urine specimen. Steroid administration not considered at this time. Patient's renal function continues to improve. #Elevated inflammatory markers: ID found no evidence of infection and has signed off. #Lower extremity edema: Metolazone 1 dose of 5 mg was given yesterday with improvement. Continue torsemide 40 mg twice a day. #Newly diagnosed diabetes: Pt is being treated with Levemir and insulin on a sliding scale. Medical team will adjust insulin medication for discharge. #Sinus tachycardia with shortened CO interval: pt is on metoprolol tartrate 50 mg PO 3 times a day with holding parameters for SBP <120 and HR<60. Medical team will adjust as deemed fit for discharge. Plan/VTE VTE Prophylaxis Ordered?: No Disposition Patient anticipates discharge today. Patient has been counseled on following up in the nephrology office within 7 days. GME ATTESTATION My faculty preceptor for this patient encounter was physically present during the encounter and was fully available. All aspects of the patient interview, examination, medical decision making process, and medical care plan development were reviewed and approved by the faculty preceptor. The faculty preceptor is aware and concurs with the plan as stated in the body of this note and will attest to such by his/her cosignature. VS, I&O, 24H, Fishbone Vital Signs/I&O Vital Signs Date Time Temp Pulse Resp B/P (MAP) Pulse Ox O2 Delivery O2 Flow Rate FiO2 03/29/20 08:27 104 127/88 03/29/20 06:00 98.2 19 98 Room Air 03/26/20 12:35 2 I&O- Last 24 Hours up to 6 AM 03/29/20 06:00 Intake Total 990 ml Output Total 2125 ml Balance -1135 ml Laboratory Data 24H LABS Laboratory Tests 2 03/28/20 17:07: Bedside Glucose (Misc Panel) 179H 03/28/20 21:08: Bedside Glucose (Misc Panel) 310H 03/29/20 05:42: Immature Granulocyte % (Auto) 1.6, Neutrophils (%) (Auto) 70.6H, Lymphocytes (%) (Auto) 17.5L, Monocytes (%) (Auto) 9.4H, Eosinophils (%) (Auto) 0.5, Basophils (%) (Auto) 0.4, Neutrophils # (Auto) 9.9H, Lymphocytes # (Auto) 2.5, Monocytes # (Auto) 1.3H, Eosinophils # (Auto) 0.1, Basophils # (Auto) 0.1, Nucleated Red Blood Cells % (auto) 0.0, Anion Gap 12, Glomerular Filtration Rate 17.8L, Calcium Level 9.6, Magnesium Level 2.6H, Total Bilirubin 0.6, Aspartate Amino Transf (AST/SGOT) 22, Alanine Aminotransferase (ALT/SGPT) 35, Alkaline Phosphatase 112, Total Protein 7.4, Albumin 3.1L, Albumin/Globulin Ratio 0.7L 03/29/20 06:39: Bedside Glucose (Misc Panel) 128H 03/29/20 11:34: Bedside Glucose (Misc Panel) 197H CBC/BMP Laboratory Tests 03/29/20 05:42 Microbiology Microbiology 03/22/20 Blood Culture - Final, Complete NO GROWTH AFTER 5 DAYS 03/22/20 Urine Culture - Final, Complete 03/22/20 Blood Culture - Final, Complete NO GROWTH AFTER 5 DAYS Attending Note Attending Note CKD4 Newly diagnosed DM2 Subnephrotic proteinuria Elevated inflammatory markers LE edema Cont Torsemide on DC. Final renal path report to be discussed in office. No SAMIRA/ARB due to advanced CKD. Negative infectious work up. Dell Mccarty DO Mar 29, 2020 13:51 LASHELL MCCARTY MD Mar 30, 2020 15:54
--- NOTE | 2020-03-29 16:20 | DS.PDOC ---
Discharge Summary General Date of Admission Mar 22, 2020 at 15:34 Date of Discharge 03/29/20 Discharge Summary PROCEDURES PERFORMED DURING STAY: [None]. ADMITTING DIAGNOSES: ASYA (acute kidney injury) Lower extremity edema Diabetes mellitus Hypothyroidism Proteinuria Back pain Sinus tachycardia DISCHARGE DIAGNOSES: ASYA (acute kidney injury) Lower extremity edema Diabetes mellitus Hypothyroidism Proteinuria Back pain Sinus tachycardia COMPLICATIONS/CHIEF COMPLAINT: ASYA. HISTORY OF PRESENT ILLNESS:Patient is 39 years old female with past history of hypothyroidism, chronic back pain, goiter presented hospital with bilateral leg swelling. Patient stated that she went to urgent care 3 days ago because of exacerbation of chronic back pain, she received injection of Toradol and received ibuprofen. On the next day patient started feeling leg swelling bilaterally which progressively increased for past 2 days. In ER patient was found to have white blood count of 14.4, sedimentation rate of 43, creatinine 2.2, GFR 26, glucose level 346, d-dimer elevated to 4,000. Doppler ultrasound negative for DVT. HOSPITAL COURSE: During hospital stay following issue addressed ASYA (acute kidney injury) Most likely intrinsic Secondary to NSAIDs and undiagnosed diabetes Autoimmune studies negative Await results of the renal biopsy Elevated d-dimer VQ scan showed low probability of PE DC oral anticoagulation Lower extremity edema Echo showed Normal left ventricular size, wall thickness, and hyperkinetic wall motion. Normal left atrial size and Doppler assessment of mean left atrial pressure. Normal right heart chamber sizes and motion and estimated pulmonary arterial pressure. Normal IVC size and collapse against an elevated central venous pressure. BNP within normal limit Nephrology team started Lasix IV Diabetes mellitus Diabetes diet HbA1c 10. Patient will need insulin in the outpatient settings Insulin sliding scale Detemir twice a day, glucose level not optimally controlled. I increased detemir twice a day to 20 units Glucose level under control Hypothyroidism TSH and T4 with a normal limit Follow-up with photographic process attendant in the outpatient settings Proteinuria Mostly secondary to diabetic nephropathy superimposed with NSAIDS 24 hours urine protein 1146 mg Sinus tachycardia EKG showed sinus tach Most likely secondary to severe anxiety Lorazepam when necessary I increased the dose of Metoprolol 50 mg 3 times a day Back pain Patient has slight leukocytosis with back pain and increased sedimentation rate to 63 There is possibility of discitis MRI showed Diffuse decreased T1 vertebral bone marrow signal. Clinical correlation with marrow infiltrative process. I discussed the findings with r adiologist. Most likely these findings not pertinent Dr. Luna does not feel that patient has infectious process CT chest and abdomen and pelvis unremarkable DISCHARGE MEDICATIONS: Please see below. ALLERGIES: Please see below. PHYSICAL EXAMINATION ON DISCHARGE: VITAL SIGNS: Please see below. GENERAL APPEARANCE: NAD HEENT: no scleral icterus, no JVD, EOMI CARDIOVASCULAR: S1S2 LUNGS: CTA ABDOMEN: soft & not tender w palpitation MUSCULOSKELETAL: +3 nonpitting edema from the ankle to the middle of her hip INTEGUMENT: no generalized pallor Back: Tender to palpation over L2-L4 NEUROLOGICAL: cranial nerve function from 2-12 intact intact, follows commands, speech not dysarthric LABORATORY DATA: Please see below. IMAGING: TECHNIQUE: Real time brantley scale ultrasound examination using curved array transducer. FINDINGS: Kidneys are normal in contour, size, echogenicity, and reniform shape without hydronephrosis, nephrolithiasis, cystic or renal mass lesion. No perinephric fluid collection. Right kidney measures 13.5 x 6.5 x 5.3 cm. Left kidney measures 12.3 x 6.1 x 6.9 cm. Bladder is collapsed. IMPRESSION: 1. Normal renal ultrasound. No hydronephrosis. PROGNOSIS: Fair ACTIVITY: [As tolerated]. DIET: Cardiac DISPOSITION: 01 Home, Self-Care. ITEMS TO FOLLOWUP ON ON OUTPATIENT: Follow-up with stave log ripsaw operator in 1 week DISCHARGE CONDITION: [Stable]. TIME SPENT ON DISCHARGE: Greater than 40 minutes. Vital Signs/I&Os Vital Signs Date Time Temp Pulse Resp B/P (MAP) Pulse Ox O2 Delivery O2 Flow Rate FiO2 03/29/20 08:27 104 127/88 03/29/20 06:00 98.2 19 98 Room Air 03/26/20 12:35 2 I&O- Last 24 Hours up to 6 AM 03/29/20 06:00 Intake Total 990 ml Output Total 2125 ml Balance -1135 ml Laboratory Data Labs 24H Laboratory Tests 2 03/28/20 17:07: Bedside Glucose (Misc Panel) 179H 03/28/20 21:08: Bedside Glucose (Misc Panel) 310H 03/29/20 05:42: Immature Granulocyte % (Auto) 1.6, Neutrophils (%) (Auto) 70.6H, Lymphocytes (%) (Auto) 17.5L, Monocytes (%) (Auto) 9.4H, Eosinophils (%) (Auto) 0.5, Basophils (%) (Auto) 0.4, Neutrophils # (Auto) 9.9H, Lymphocytes # (Auto) 2.5, Monocytes # (Auto) 1.3H, Eosinophils # (Auto) 0.1, Basophils # (Auto) 0.1, Nucleated Red Blood Cells % (auto) 0.0, Anion Gap 12, Glomerular Filtration Rate 17.8L, Calcium Level 9.6, Magnesium Level 2.6H, Total Bilirubin 0.6, Aspartate Amino Transf (AST/SGOT) 22, Alanine Aminotransferase (ALT/SGPT) 35, Alkaline Phosphatase 112, Total Protein 7.4, Albumin 3.1L, Albumin/Globulin Ratio 0.7L 03/29/20 06:39: Bedside Glucose (Misc Panel) 128H 03/29/20 11:34: Bedside Glucose (Misc Panel) 197H CBC/BMP Laboratory Tests 03/29/20 05:42 FSBS Laboratory Tests Test 03/28/20 17:07 03/28/20 21:08 03/29/20 06:39 03/29/20 11:34 Range/Units Bedside Glucose (Misc Panel) 179 310 128 197 70-105 MG/DL Microbiology Microbiology 03/22/20 Blood Culture - Final, Complete NO GROWTH AFTER 5 DAYS 03/22/20 Urine Culture - Final, Complete 03/22/20 Blood Culture - Final, Complete NO GROWTH AFTER 5 DAYS Discharge Medications Scheduled Blood Sugar Diagnostic (Advanced Glucose Test Strips) 1 Each Strip, 1 STRIP XX TID Insulin Glargine,Hum.rec.anlog (Lantus Solostar) 100 Unit/1 Ml Insuln.pen, 40 UNIT SC QPM Metoprolol Tartrate (Lopressor) 50 Mg Tablet, 50 MG PO TID Potassium Chloride (Klor-Con M10) 10 Meq Tab.er.prt, 20 MEQ PO DAILY Torsemide (Torsemide) 20 Mg Tablet, 40 MG PO BID@09,17 Scheduled PRN Cyclobenzaprine HCl (Cyclobenzaprine HCl) 10 Mg Tablet, 10 MG PO Q8H PRN for SPASMS, (Reported) Miscellaneous Medications [Pt Comment] , (Reported) pt states takes a norethindrone/ethinyl estradiol birthcontrol of indeterminate strength. Last taken on 03/21/20. Allergies Coded Allergies: sulfamethoxazole (Verified Allergy, Unknown, RASH, 03/22/20) WOLF JARQUIN DO Mar 29, 2020 16:20
--- NOTE | 2020-03-30 15:20 | IPN ---
PROGRESS NOTE DATE: 03/28/2020 SUBJECTIVE: Patient was seen and examined at the bedside today morning. She is afebrile, hemodynamically stable. She still reports a persistent lower extremity edema. There is no significant change in the renal function despite the high dose of diuretics. I got a call from [facility] and [facility] regarding a renal pathology result, which is measured as below. Infectious disease is also seeing the patient and so far, all the infectious workup is negative. PHYSICAL EXAMINATION: VITAL SIGNS: Temperature 98 degrees Fahrenheit, blood pressure 125/82, pulse 113, respiratory rate 12, saturating 96% on room air. INTAKE AND OUTPUT: Urine output recorded is 1 liter yesterday and 550 mL by the time I saw her. Weight in the bed scale is 94.2 kg, which is still almost the same as yesterday. GENERAL: Patient is awake, alert, oriented x3, laying in bed in no apparent distress. HEAD AND NECK EXAM: Extraocular muscles intact. Pupils equally round and reactive to light. Mucous membranes are moist. Neck is supple. There is no jugular venous distention. CARDIOVASCULAR: S1, S2. Regular rate. Bilateral lower extremities with 2+ edema all the way up to her thighs. RESPIRATORY: Chest is clear to auscultation bilaterally currently. No rales or rhonchi. ABDOMEN: Soft. Positive bowel sounds. Nontender. No organomegaly. MUSCULOSKELETAL: Edema of the bilateral lower extremities, as mentioned above. CENTRAL NERVOUS SYSTEM: No focal deficits. Power is 5/5 in all extremities. LABORATORY REVIEW: CBC shows WBC 12.7, hemoglobin 12.5, platelets 187. BMP done today shows sodium 138, potassium 3.9, chloride 105, bicarbonate 27, BUN 49, creatinine 2.2, it was 2 yesterday, calcium 9.2, magnesium 2.5, albumin 2.9. IMMUNOLOGY: Rheumatoid factor, antinuclear antibody (MARVIN), antineutrophil cytoplasmic antibodies (ANCA), anti-myeloperoxidase antibody, anti-double stranded DNA are all negative. Glomerular basement membrane antibodies pending. Lyme titers are negative. Hepatitis B and C serologies negative. Quantiferon tuberculosis test pending. MICROBIOLOGY: All cultures, including blood and urine cultures, are negative. CURRENT INPATIENT MEDICATIONS: Patient's medications are all reviewed by myself. She has been started on: - torsemide 40 mg p.o. b.i.d. - I have given her a dose of metolazone 5 mg p.o. x1 dose. No other significant change in the medications today. She continues to be on: - metoprolol 50 mg p.o. t.i.d. Preliminary results of the left renal biopsy showed chronic changes. There was mild mesangial expansion. Electron microscopy is pending. There was mild interstitial nephritis. There was no tubular injury. No specific etiology was ascertained on light microscopy. ASSESSMENT: 1. Acute renal failure. It is most likely associated with her chronic undiagnosed diabetes. Final electron microscopy results will be available next week. No need of pulse steroids at this time. I believe her creatinine is going to stay close to the current range of 2 to 2.2. 2. Proteinuria. It is most likely associated with diabetic nephropathy. Final biopsy results are pending. I will not give any steroids at this time. She is not a candidate for SAMIRA inhibitors or angiotensin receptor blockers because of a GFR of 25. 3. Lower extremity edema. She continues to be on torsemide. 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 4. Newly diagnosed diabetes. She is currently on subcutaneous insulin. Glucose levels are within the acceptable range. 5. Sinus tachycardia. It is controlled with current dose of metoprolol. 6. Elevated inflammatory markers. All the infectious disease workup has been negative so far. Quantiferon tuberculosis test is pending. Infectious disease did not recommend giving antibiotics. /amelie
== END 2020-03-29 15:11 | disposition home or self-care (01) | DRG 700 ==
LOC: M ED 10:00 → M ED INP 15:34 → M MSPAV 03-23 10:36
PROVIDERS: ADMIT Internal Medicine; ATTEND Internal Medicine
PROC: 0TB13ZX Excision of Left Kidney, Percutaneous Approach, Diagnostic (ICD-10-PCS; principal; 2020-03-26 12:00)
DX: E11.21 Type 2 diabetes mellitus with diabetic nephropathy (principal); N17.9 Acute kidney failure, unspecified; E03.9 Hypothyroidism, unspecified; M54.5 Low back pain; R00.0 Tachycardia, unspecified; F41.9 Anxiety disorder, unspecified; Z79.899 Other long term (current) drug therapy; Z88.2 Allergy status to sulfonamides; F17.200 Nicotine dependence, unspecified, uncomplicated

== ENCOUNTER → 2020-04-03 | Outpatient (REF) | payer OTHER ==
[~2020-04-03] MED LIST: ALCOPAD25 TOP; BLOOKIT21 XX; CYCL-707 PO; GLUC1TES2 XX; IBUP80TA PO; INSU1MIS20 SC; KLOR10TA76 PO; LANC30MI XX; LANTINJ4 SC; LOPR1TAB6 PO; PEN1MIS21 SC; PT COMMENT; TORS20TA2 PO
[2020-04-03 17:19] LABS: BASO # 0.1 10^3/uL (0.0-0.2); BASO % 0.4 % (0.0-1.0); EOS # 0.1 10^3/uL (0.0-0.5); EOS % 0.7 % (0.0-3.0); HEMOGLOBIN 12.5 g/dl (12.0-15.5); LYMPH # 2.5 10^3/uL (1.5-5.0); LYMPH % 12.9 % (24.0-44.0); MEAN CORPUSCULAR HEMOGLOBIN 28.7 pg (27.0-33.0); MEAN CORPUSCULAR HGB CONC 32.9 g/dl (32.0-36.5); MEAN CORPUSCULAR VOLUME 87.4 fl (80.0-96.0); MONO # 1.5 10^3/uL (0.0-0.8); NEUTROPHILS # 14.8 10^3/uL (1.5-8.5); PLATELET COUNT, AUTOMATED 202 10^3/uL (150-450); RED BLOOD COUNT 4.35 10^6/uL (4.00-5.40); WHITE BLOOD COUNT 19.2 10^3/uL (4.0-10.0)
[2020-04-03 17:34] LABS: ALBUMIN 3.3 GM/DL (3.2-5.2); CALCIUM LEVEL 9.8 MG/DL (8.5-10.1); CHOLESTEROL RISK RATIO 3.63 (<5); CREATININE FOR GFR 3.43 MG/DL (0.55-1.30); GLOMERULAR FILTRATION RATE 15.8 (>58); PHOSPHORUS LEVEL 3.8 MG/DL (2.5-4.9); POTASSIUM SERUM 3.3 MEQ/L (3.5-5.1); TOTAL PROTEIN 7.9 GM/DL (6.4-8.2)
[2020-04-03 17:35] LABS: HEMOGLOBIN A1c 9.8 %
== END ==
LOC: M LAB REF 16:27
PROVIDERS: ATTEND Nurse Practitioner Family
DX: N17.9 Acute kidney failure, unspecified (principal)

== ENCOUNTER → 2020-04-07 | Outpatient (REF) | payer OTHER ==
[2020-04-07 18:40] LABS: PERCENT SATURATION 16.4 % (13.2-45.0)
== END ==
LOC: M LAB REF 17:06
PROVIDERS: ATTEND Internal Medicine Nephrology
DX: D64.9 Anemia, unspecified (principal)

== ENCOUNTER → 2020-05-08 | Outpatient (REF) | payer OTHER ==
[2020-05-08 18:20] LABS: BASO % 0.4 % (0.0-1.0); EOS # 0.2 10^3/uL (0.0-0.5); EOS % 1.9 % (0.0-3.0); HEMATOCRIT 43.3 % (36.0-47.0); HEMOGLOBIN 13.3 g/dl (12.0-15.5); LYMPH # 2.2 10^3/uL (1.5-5.0); LYMPH % 23.7 % (24.0-44.0); MEAN CORPUSCULAR HEMOGLOBIN 27.7 pg (27.0-33.0); MEAN CORPUSCULAR HGB CONC 30.7 g/dl (32.0-36.5); MEAN CORPUSCULAR VOLUME 90.2 fl (80.0-96.0); MONO # 0.7 10^3/uL (0.0-0.8); MONO % 7.5 % (2.0-8.0); NEUTROPHILS # 6.1 10^3/uL (1.5-8.5); NEUTROPHILS % 66.1 % (36.0-66.0); PLATELET COUNT, AUTOMATED 184 10^3/uL (150-450); WHITE BLOOD COUNT 9.2 10^3/uL (4.0-10.0)
[2020-05-08 18:32] LABS: ALBUMIN 3.5 GM/DL (3.2-5.2); BILIRUBIN,TOTAL 0.4 MG/DL (0.2-1.0); CALCIUM LEVEL 9.5 MG/DL (8.5-10.1); CREATININE FOR GFR 1.6 MG/DL (0.55-1.30); POTASSIUM SERUM 3.2 MEQ/L (3.5-5.1); TOTAL PROTEIN 8.5 GM/DL (6.4-8.2)
[2020-05-08 18:40] LABS: TOTAL 25(OH) VITAMIN D 10.1 NG/ML (30.0-100.0)
[2020-05-08 19:14] LABS: APPEARANCE, URINE CLEAR (CLEAR); BACTERIA, URINE AUTO 1+ (NEGATIVE); BILIRUBIN, URINE AUTO NEGATIVE (NEGATIVE); BLOOD, URINE BLOOD NEGATIVE (NEGATIVE); COLOR, URINE STRAW (YELLOW); GLUCOSE, URINE (UA) AUTO NEGATIVE (NEGATIVE); KETONE, URINE AUTO NEGATIVE (NEGATIVE); LEUKOCYTE ESTERASE, URINE AUTO NEGATIVE (NEGATIVE); MUCUS, URINE SMALL (NEGATIVE); NITRITE, URINE AUTO NEGATIVE (NEGATIVE); PROTEIN, URINE AUTO NEGATIVE (NEGATIVE); RBC, URINE AUTO 0 /HPF (0-3); SPECIFIC GRAVITY URINE AUTO 1.005 (1.002-1.035); SQUAMOUS EPITHELIAL CELL UR AU 0 /HPF (0-6); UROBILINOGEN, URINE AUTO 0.2 mg/dL (0.0-2.0); WBC, URINE AUTO 1 /HPF (0-3)
== END ==
LOC: M LAB REF 16:46
PROVIDERS: ATTEND Nurse Practitioner Family
DX: Z00.00 Encounter for general adult medical examination without abnormal findings (principal); N19 Unspecified kidney failure